=== PATIENT | female | born 1955 | race Caucasian/White ===

== ENCOUNTER → 2017-07-03 10:28 | Outpatient (CLI) | payer MEDICARE, SELFPAY ==
--- NOTE | 2017-07-03 | DI.RAD.S_ITS ---
PROCEDURE: XR FEMUR LT MIN 2V INDICATIONS: LEFT HIP AND THIGH PAIN TECHNIQUE: 3 views of the femur were acquired. COMPARISON: None. FINDINGS: Bones: No fractures or dislocations. No suspicious bony lesions. Advanced degenerative hip joint disease Soft tissues: No suspicious soft tissue calcifications or masses. IMPRESSION: 1. Osteoarthritis left hip. 2. No acute bony abnormality left femur. Dictated by: Semaj Ramirez M.D. on 07/03/2017 at 11:54 Approved by: Semaj Ramirez M.D. on 07/03/2017 at 11:55
--- NOTE | 2017-07-03 | DI.RAD.S_ITS ---
PROCEDURE: XR HIP W PEL IF DONE LT 2V INDICATIONS: LEFT HIP AND THIGH PAIN TECHNIQUE: AP pelvis with lateral view(s) of the left hip(s). COMPARISON: Left hip 03/04/2011, 06/22/2006 FINDINGS: Bones: No fractures or dislocations. Pelvic ring appears intact. No suspicious bony lesions. Degenerative left hip joint disease has progressed in the interim since last study, further narrowing of the joint space, more deformity of the femoral head and more prominent marginal osteophyte formation. Subcortical cystic changes and mild sclerosis again noted. The right hip joint space appears maintained. Sacroiliac joints appear normal. Soft tissues: The visualized bowel gas pattern is normal. No suspicious soft tissue calcifications. IMPRESSION: 1. No fracture or acute bony abnormality. 2. Progressive osteoarthritis left hip, grade 4 in severity with near [id number] appearance Dictated by: Semaj Ramirez M.D. on 07/03/2017 at 11:51 Approved by: Semaj Ramirez M.D. on 07/03/2017 at 11:54
== END ==
PROVIDERS: Family Provider Nurse Practitioner Family; PCP Nurse Practitioner Family; Visit Provider Nurse Practitioner Family
DX: M16.12 Unilateral primary osteoarthritis, left hip (principal)
CPT/HCPCS: 73502; 73552

== ENCOUNTER → 2017-10-02 08:20 | Outpatient (CLI) | payer MEDICARE, SELFPAY ==
[2017-10-02 08:35] LABS: Bacteria Urine None Seen; WBC Urine None Seen (0-5/HPF)
[2017-10-02 09:58] LABS: Appearance Urine UA CLEAR; Bilirubin Urine UA NEGATIVE (NEGATIVE); Color Urine UA YELLOW; Glucose Urine UA NEGATIVE (Normal); Ketones Urine UA NEGATIVE (NEGATIVE); Leukocyte Esterase Urine UA NEGATIVE (NEGATIVE); Nitrite Urine UA Negative (Negative); Occult Blood Urine UA TRACE-INTACT (Negative); Protein Urine UA NEGATIVE (Negative); Urobilinogen Urine UA 0.2 E.U./dL (0.2)
[2017-10-02 10:06] LABS: Add Manual Diff / Slide Review NO; Basophils Percent Auto 0.7 % (0-2); Eosinophils Percent Auto 2.1 % (2-4); Hematocrit 43.2 % (36-46); Hemoglobin 15.2 g/dL (12.0-16.0); Lymphocytes Percent Auto 38.3 % (25-40); Mean Corpuscular HGB Conc 35.1 % (30-36); Mean Corpuscular Hemoglobin 35.1 PG (26-34); Mean Corpuscular Volume 99.8 fL (80-100); Monocytes Percent Auto 3.4 % (3-14); Neutrophils Absolute Auto 3500 /uL (3000-5900); Neutrophils Percent Auto 55.5 % (50-75); Platelet Count 198 X10^3/uL (150-400); Red Blood Cell Count 4.33 X10^6/uL (4.0-5.2); Red Cell Distribution Width 12.8 % (11.6-14.8); White Blood Cell Count 6.4 X10^3/uL (4.5-11.0)
[2017-10-02 10:23] LABS: Hemoglobin A1C% w Est Avg Glu 5.4 % (4.0-6.0)
[2017-10-02 10:29] LABS: BUN Creatinine Ratio 19.1 (6-22); Blood Urea Nitrogen 21 mg/dL (7-17); Calcium 9.4 mg/dL (8.4-10.2); Carbon Dioxide 29 mmol/L (22-32); Chloride 104 mmol/L (98-107); Glucose 95 mg/dL (80-110); HEMOLYSIS < 15 (0-50); Potassium 4.1 mmol/L (3.4-5.1); Sodium 142 mmol/L (137-145)
[2017-10-02 10:44] LABS: Amorphous Sediment Urine 1+; Culture Indicated Urine Cult Not Indicated; RBC Urine 1-5/HPF (0-5/HPF); Squamous Epithelial Cell Urine 5-10 /HPF
== END ==
PROVIDERS: Family Provider Nurse Practitioner Family; PCP Nurse Practitioner Family; Visit Provider Orthopaedic Surgery
DX: Z01.818 Encounter for other preprocedural examination (principal); Z01.812 Encounter for preprocedural laboratory examination; R73.09 Other abnormal glucose; N39.0 Urinary tract infection, site not specified
CPT/HCPCS: 36415; 80048; 81001; 83036; 85025; 93005; 93010

== ENCOUNTER 2017-11-02 06:10 | Inpatient (IN) | payer MEDICARE, SELFPAY ==
[2017-10-17 08:45] VITALS: BMI 22.1
[2017-11-02] VITALS (13 sets, daily range): BP systolic 97–143; BP diastolic 52–80; PULSE 52–67; RESP 12–20; TEMP 35.9–36.8; O2SAT 96–100; BMI 22.1
--- NOTE | 2017-11-02 | DI.RAD.S_ITS ---
PROCEDURE: XR HIP W PEL IF DONE LT 2V INDICATIONS: POST OPERATIVE LEFT HIP TECHNIQUE: 2 view(s) of the hip acquired. COMPARISON: [facility] [place], CR, XR PELVIS 1 OR 2 VIEWS, 10/10/2017, 11:13. [facility], CR, XR HIP W PEL IF DONE LT 2V, 11/02/2017, 8:30. FINDINGS: Bones: Patient is status post left hip arthroplasty, with hardware components in expected positions. The hip joint appears congruent. The visualized bony structures appear intact. Soft tissues: Overlying postoperative changes are noted. No suspicious soft tissue densities. IMPRESSION: Status post left hip arthroplasty as above Dictated by: Marsha Kerr M.D. on 11/02/2017 at 12:34 Approved by: Marsha Kerr M.D. on 11/02/2017 at 12:35
--- NOTE | 2017-11-02 06:30 | DI.RAD.S_ITS ---
PROCEDURE: XR HIP W PEL IF DONE LT 2V INDICATIONS: Intraoperative left hip TECHNIQUE: 2 views of the hip were acquired. COMPARISON: [facility] [place], CR, XR PELVIS 1 OR 2 VIEWS, 10/10/2017, 11:13. [facility], CR, XR HIP W PEL IF DONE LT 2V, 07/03/2017, 10:37. [facility], CR, XR HIP W PEL IF DONE LT 2V, 11/02/2017, 12:02. FINDINGS: 2 intraoperative fluoroscopy images demonstrate left hip total arthroplasty. The prosthesis is anatomically aligned. IMPRESSION: Left hip total arthroplasty. Dictated by: Lisa William M.D. on 11/02/2017 at 14:17 Approved by: Lisa William M.D. on 11/02/2017 at 14:18
[2017-11-02] MEDS: VANCOMYCIN 1,000 MG/200 ML FROZ.PIGGY 200 MG IV (06:55)
[2017-11-02] MEDS: ACETAMINOPHEN 325 MG TABLET 975 MG PO ×3 (07:01→20:05)
[2017-11-02] MEDS: CELECOXIB 200 MG CAPSULE PO (07:02)
[2017-11-02] MEDS: PREGABALIN 75 MG CAPSULE PO (07:03)
--- NOTE | 2017-11-02 07:35 | PM.PREOP ---
Pre-operative Note Interval Note Pre-op Check: Yes History & Physical Reviewed by Physician and Yes Exam Performed Changes: No
--- NOTE | 2017-11-02 07:36 | PM.OP.1 ---
Operative Date/Time/Diagnoses Date of procedure: 11/02/17 Time of procedure: 10:10 Pre-op diagnosis: left hip oa Post-op diagnosis: same Procedure & Clinicians Procedure: Left total hip arthroplasty anterior approach Same procedure as scheduled: Yes Indications: The patient has had progressively worsening left hip pain with radiographic changes consistent with arthritis. Non-operative management has failed and the patient has requested total hip replacement. The risks, benefits and alternatives to surgery were discussed with the patient prior to proceeding. Risks discussed included, but were not limited to, failure to relieve pain, leg length discrepancy, dislocation, stiffness, infection, nerve damage, deep venous thrombosis, pulmonary embolism, stroke, coma, heart attack, permanent paralysis and , as well as the potential need for eventual revision of the prosthetic. Surgeon: Meagan Cleveland Project Management Director: Prakash Smith Anesthesia Type: Spinal Operative Notes Findings: Severe left hip arthritis, good stability Closure Type: primary Specimen(s): none sent Implants & Drains: Left hip R3 52 mm cup with a 36 neutral liner, anthology size 7 standard offset stem, +0 head, single screw 25 mm Applied: drain(s) Estimated Blood Loss (mL): 200 Blood products transfused: none Procedure in detail: The patient was brought to the operating room. Patient was carefully positioned in the supine position. Time-out was performed and antibiotics were given. Anesthesia was induced. She was positioned in the on the table in order to allow hyperextension of the hip. Bilateral lower extremities were prepped and draped in a standard sterile fashion. An anterior left hip incision was made 1 fingerbreadth lateral to the anterior superior iliac spine and extended distally towards the greater trochanter. Dissection was carried out through skin and subcutaneous tissues. The skin and subcutaneous tissues were carefully injected with Marcaine with epi. Superficial hemostasis was achieved. The fascia over the tensor fascia breann was defined and incised with a knife. Two Allis clamps were used to grasp the fascia. Tensor fascia breann was retracted laterally. A gelpi retractor was placed. Dissection was carried out down along the neck. The circumflex vessels were carefully identified and cauterized with the Aqua Mantis. There was good visualization of the femoral neck. A Cobra was placed superior to the neck and the gluteus fibers were carefully stripped from that superior aspect of the capsule. A 2nd retractor was placed along the inferior aspect of the neck. The rectus insertion along the capsule was released. A 3rd retractor that was then gently placed over the rim of the acetabulum under the rectus. Capsule was carefully incised and released from the intertrochanteric line circumferentially superior to the mid sagittal line and inferiorly to the mid sagittal line until the lesser trochanter was palpable. A tag stitch was placed both in the superior and inferior limb of the capsular insertion. Along the acetabulum capsule was also released up to the mid sagittal 12:00 position. Portion of the labrum was resected. A saw was used to perform an osteotomy at the level of the intertrochanteric line and the junction of the superior femoral neck leaving approximately 1 finger breath of residual inferior neck above the lesser trochanter. A 2nd cut was made along the femoral neck at the base of the head and a napkin ring of neck was removed. Corkscrew was placed in the femoral head and the head was removed without difficulty. Retractors were then repositioned around the acetabulum. Residual labrum was resected and additional osteophytes were removed. A Reamer that was 4 mm below the templated size was placed by hand in the acetabulum and it was reamed to centralize the acetabulum. Was then reamed up to 2 under the templated size fluoroscopy was brought in to confirm the position of the reaming and depth of reaming. I reamed 1 under the anticipated size and touch the rim with line to line reaming. A trial cup was placed and noted that it was appropriately sized and fluoroscopy confirmed position and depth. The component was open and inserted without difficulty fluoroscopic imaging was used to confirm that the cup had been adequately seated and was well positioned. The cup was carefully seated and had some stability and it was also fixed with a single acetabular screw that had good bite and purchase. Neutral poly liner was placed. The cup was tested and noted to be stable. Attention was then directed to the femur. The femur was gently hyperextended additional capsular release was performed as needed in order to allow adequate visualization of the proximal femur with elevation of the femur. Patient was placed in a hyperextended slightly abducted position with maximum external rotation. Box osteotome was used to check for any residual neck as well as sclerotic bone along the trochanter. [place] pepper was placed in the femur. Additional broaching was performed. Canal finer was used to determine the alignment of the canal and position. Size 1 broach was placed. The canal was then appropriately broached up to the templated size as long as there was adequate stability of the broach and serial advancement of the broach without excessive impingement. Specific attention was directed at avoiding varus attempting to direct the distal aspect of the approach more anteriorly and avoiding excessive anteversion. Trial reduction showed acceptable range of motion, good stability, no posterior impingement, buddhism of leg length and appropriate lateral shuck. I also hyperflexed the hip and checked that there was no impingement anteriorly and there was good stability with flexion, abduction and internal rotation. Final neutral poly was placed without difficulty. Marcaine and Exparel were injected.. The stem was placed without difficulty. Repeat trial reduction and x-ray showed acceptable overall position, length, and no evidence of the femoral fracture. Final head was placed. Wound was meticulously irrigated with normal saline. The hip was reduced and additional Exparel and Marcaine were injected. The capsule was closed with interrupted black braided nylon. The fascia of the tensor was closed with interrupted and running Vicryl. No drain was placed. Any tensor fascia breann muscle that appeared to be contused or injured which was a minimal amount was carefully resected. Capsule around the tensor was injected with Exparel and Marcaine. The skin was closed with barbed stitches for the subcutaneous tissue and skin. We also used surgical glue. The wound was dressed sterilely. Brief Betadine soak was also used and was meticulously irrigated with normal saline. Patient was transferred to recovery room in satisfactory condition. Complications: none Condition: stable Disposition: Acute Care Plan for aftercare: The patient will be maintained on a standard total hip replacement protocol with weight bearing as tolerated and anterior hip precautions. The patient will receive aspirin and sequential compression devices for DVT prophylaxis. The patient will be discharged home when safe for the home environment.
[2017-11-02] MEDS: ALBUTEROL/IPRATROPIUM 3 ML AMPUL INH (07:45)
[2017-11-02] MEDS: CEFAZOLIN 2 GM/100 ML FROZ.PIGGY IV ×3 (08:00→23:57)
[2017-11-02] MEDS: TRANEXAMIC ACID 1,000 MG VIAL 1000 MG INJ (08:35)
--- NOTE | 2017-11-02 08:52 | SUR.OPER ---
Supine, head on pillow, torso on pink pad positioner. Iliac crest at flex of foot end of table. Gel roll under operative hip. Both arms secured on arm boards <90 degrees abduction.
--- NOTE | 2017-11-02 08:53 | SUR.OPER ---
PATIENT REQUIRED A NEBULIZER TREATMENT PRE OP FOR DIFFUSE WHEEZING.. EX SMOKER
[2017-11-02] MEDS: BUPIVACAINE 0.25% W/ EPI VIAL 60 ML INJ (09:04)
[2017-11-02] MEDS: BUPIVACAINE LIPOSOME 266 MG/20 ML VIAL INJ (09:05)
[2017-11-02] MEDS: LIDOCAINE 1% W/EPI INJ 11 ML INJ (09:12)
[2017-11-02] MEDS: LACTATED RINGERS 1,000 ML 42 ML IV (09:13)
[2017-11-02] MEDS: POVIDONE-IODINE 15 ML, SODIUM CHLORIDE 0.9% 250 ML TOP (09:41)
--- NOTE | 2017-11-02 12:16 | CM.IDA ---
Addendum entered by CHRIS Elise 11/03/17 14:57: Met w/pt this morning, she explained she would be going home today and was eager to leave the hospital and get back to the comfort of her own home. She felt there were no barriers to safe DC home; spouse, children and grand children available to assist and all DME needed at home w/scheduled outpt appts. MALIA Original Note: DCP Assessment Note: Pt is a 62 yo female, resident of [place]. Pt here for hip surgery w/Dr Cleveland. Pt's PCP is Nelly Jones; Insurance is Medicare. Pt off the floor for surgery this morning. Will attempt full assessment Monday. CHRIS Elise Discharge Planning/Care Management CM Discharge Assessment Start: 11/02/17 12:06 Freq: Status: Active Protocol: Document 11/02/17 12:06 MALIA (Rec: 11/02/17 12:16 MALIA [id number]) Discharge Planning Assessment Assigned Consulting Practice Director CHRIS Tamayo DPOA/Assigned Designee Name Tima Brink, spouse Contact Information home, cell, Advance Directives? No: Declines further information Advance Directives on File No History Provided By Patient Significant Other Medical Record Prior Living Arrangements House Household Members spouse Type of transporation used prior to Drives own vehicle admit Independent with ADL's Yes Is patient alert and oriented? Yes Barriers to Discharge No Comment Likely home w/spouse, pt off the floor for surgery this morning Discharge Plan Home Transportation Arrangement Family Additional Comment Pt expects to DC home w/spouse to assist. Whiteboard Updated in Patient Room with Yes name and ext. # of Consulting Practice Director Review Status In Process
--- NOTE | 2017-11-02 12:27 | SUR.PHASEI ---
Ronel removed now by Octavia Stokes RN.
--- NOTE | 2017-11-02 12:51 | PC.NURSE ---
Pt to room 205 via bed from PACU. Pt awake and oriented times three. Pt denies nausea, pain, or shortness of breath. Pt oriented to call light, bed controls, tv controls. Pt bed alarm is on. Pt agrees to call for assistance as needed. Ice to left hip. CMS intact. SCD's on and running.
[2017-11-02] MEDS: LACTATED RINGERS 1,000 ML 125 ML IV (13:19)
--- NOTE | 2017-11-02 15:38 | PT.IIE ---
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) Surgery Performed Operation Date: 11/02/17 07:45 Actual Procedures p Total Hip Arthroplasty/Anterior Approach(Left) - Meagan Cleveland MD Surgical History (Last Updated 10/17/17 @ 09:19 by Elaine Nova, RN) History of skin graft (Acute) Hx of dilation and curettage (Acute) Hx of tonsillectomy (Acute) Medical History (Last Updated 10/17/17 @ 09:19 by Elaine Nova RN) Bronchitis (Acute) Depression (Acute) Elevated cholesterol (Acute) Endometriosis (Acute) Pneumonia (Acute) RLS (restless legs syndrome) (Acute) Physical Therapy Inpatient Evaluation/Re-Eval M1 PT/OT-IP Prior Functional Status Start: 11/02/17 16:40 Freq: NEEDED Status: Active Protocol: Document 11/02/17 15:38 AB (Rec: 11/02/17 16:54 AB [id number]) Medical Review Prior Functional Status Medical History Reviewed Yes Communication able to make needs known Mobility and Gait pt stated that she is independent with all mobilities and ambulation without AD Social History Household Members spouse Living Arrangements House Number of Floors (Floors) One Floor Number of Stairs To Enter/Railing? 5 steps to enter with bilateral rails Home Environment High Toilet Walk in Shower Home Equipment Front Wheel Walker Straight Cane Employment Status Retired Additional Social History Comment stated that they borrowed a shower chair from the soroptomist but will just get it tomorrow M2 PT-IP Current Condition Start: 11/02/17 16:40 Freq: NEEDED Status: Active Protocol: Document 11/02/17 15:38 AB (Rec: 11/02/17 16:54 AB [id number]) Physical Therapy Current Condition Current Condition Evaluation Date 11/02/17 Treatment Diagnosis s/p L SAMANTHA anterior approach; difficulty in walking Onset Date 11/02/17 Precautions Anterior Hip Precautions No Hip Extension No Hip External Rotation Weight Bearing Status Weight Bearing Status Weight Bear as Tolerated M3 PT-IP Subjective Start: 11/02/17 16:40 Freq: NEEDED Status: Active Protocol: Document 11/02/17 15:38 AB (Rec: 11/02/17 16:54 AB [id number]) Subjective Physical Therapy Visit Type Type Initial Evaluation Visit Start Time 15:38 Visit Stop Time 16:38 Total Visit Minutes 60 Number of COMMERCIAL TRAILER TRUCK DRIVER Visits 0 Physical Therapy Visit Comments Patient Comments pt requesting to use the toilet Therapy Pain Assessment Pain When Pain Assessed At Rest Pain Present Pain Present Pain Reported Location Left Hip Intensity 3 Scale Used Numeric (1 - 10) Pain Management Techniques Timing of Activity with Medications M4 PT-IP Mobility and Gait Start: 11/02/17 16:40 Freq: NEEDED Status: Active Protocol: Document 11/02/17 15:38 AB (Rec: 11/02/17 16:54 AB [id number]) PT-Bed Mobility Assessment Supine to Sit Supine to Sit Standby Assistance Scooting Scooting to Edge of Bed Standby Assistance PT-Transfer Assessment Sit to and From Stand Sit to and from Stand Standby Assistance Equipment Transfer Assistive Device Gait Belt Front Wheeled Walker Orthotic/Prosthetic Devices or Brace: No Transfers Transfer Destination Toilet Transfer Technique pt ambulated to the toilet Transfer Ability Level of Assist Standby Assistance Contact Guard Assistance Gait Assessment Gait Gait Assistance Required: Standby Assistance Contact Guard Assist Distance (Feet) 40 Able to Maintain Weight Bearing Status Yes During Gait Assistive Devices Assistive Device Gait Belt Front Wheeled Walker Orthotic/Prosthetic Devices or Brace: No Gait Deviations General Gait Pattern Antalgic Factors Limiting Gait Function Factors Limiting Gait Function Decreased Activity Tolerance Decreased Strength Limited Range of Motion Pain Poor Balance Comments Gait Comments pt requiring SBA to CGA with mobility. refused to do stairs today but agreed to try tomorrow. PT-Balance Assessment Sitting Balance and Reactions Static Sitting Balance Ability Good Dynamic Sitting Balance Ability Good Standing Balance and Reactions Static Standing Balance Ability Fair Dynamic Standing Balance Ability Fair Device Used FWW M5 PT-IP Objective Assessments Start: 11/02/17 16:40 Freq: NEEDED Status: Active Protocol: Document 11/02/17 15:38 AB (Rec: 11/02/17 16:54 AB [id number]) Orientation Orientation/Cognition Level of Alertness Alert Orientation Name Age Birthday Month Date Year Day of Week Place Situation Safety Awareness Understands Safety Issues Strength Lower Extremity Strength Assessment Left Impaired Hip 3-/5 Knee 3+/5 Coordination Assessment Gross Coordination Gross Coordination WNL Sensation Assessment Sensation Gross Sensation WNL Muscle Tone Muscle Tone WNL Yes M6 PT-IP Treatment Start: 11/02/17 16:40 Freq: NEEDED Status: Active Protocol: Document 11/02/17 15:38 AB (Rec: 11/02/17 16:54 AB [id number]) Physical Therapy Treatment Education Education Provided Precautions Weight Bearing Status Post-Op Packet Safety M7 PT-IP Assessment and Plan Start: 11/02/17 16:40 Freq: NEEDED Status: Active Protocol: Document 11/02/17 15:38 AB (Rec: 11/02/17 16:54 AB [id number]) PT Summary Assessment and Plan Potential Rehabilitation Potential Good Status of Condition at Evaluation Stable Summary Impairments Pain ROM Strength Balance Coordination Sensation Tone Cognition Bed Mobility Transfers Gait Activity Tolerance Assessment Summary pt is doing well with mobility requiring SBA to CGA. Pt plans to go home with spouse to assist her. pt also stated that she is set up for outpt PT. Goals Bed Mobility Goal Independent Transfer Goal Independent Front Wheeled Walker Gait Goal Independent Front Wheel Walker Gait Distance 150 Other Goals up/down 5 steps with bilateral rails SBA Days to Meet Goals 2 Frequency of Treatment Frequency Of Treatment Twice a Day Treatment Plan Physical Therapy Treatment Plan Bed Mobility Training Transfer Training Gait Training Therapeutic Exercise Balance Retraining Post Op Education Discharge Planning Hot or Cold Pack Neuromuscular Re-ed Coordination Retraining Manual Therapy Other Recommendations and Next Treatment stair climbing Focus Recommendations To Nursing Amount of Assist Needed 1 Person Assist Discharge Recommendations PT Discharge Recommendations Home with Assistance Outpatient PT
[2017-11-02] MEDS: OXYCODONE IR 5 MG TABLET PO (19:31)
[2017-11-03 00:07] VITALS: BP 99/43; PULSE 66; RESP 16; TEMP 36.6; O2SAT 98
[2017-11-03] MEDS: IBUPROFEN 600 MG TABLET PO (02:48)
[2017-11-03 04:42] VITALS: BP 110/63; PULSE 65; RESP 18; TEMP 36.9; O2SAT 97
[2017-11-03] MEDS: LACTATED RINGERS 1,000 ML 125 ML IV (06:30)
[2017-11-03 06:46] LABS: Hematocrit 28.9 % (36-46); Hemoglobin 10.4 g/dL (12.0-16.0)
[2017-11-03] MEDS: OXYCODONE IR 5 MG TABLET PO ×2 (07:02→10:11)
[2017-11-03 07:20] VITALS: BP 109/59; PULSE 68; RESP 16; TEMP 36.7; O2SAT 98
--- NOTE | 2017-11-03 07:38 | PM.DS.1 ---
History of Present Illness Date Patient Seen: 11/03/17 Chief complaint: [id number] Narrative: Patient is seen bedside status post left anterior hip arthroplasty postop day 1. Patient is doing well, her pain is well controlled and she has been up and about walking to the bathroom. She is ready to go home. Discharge Providers Date of admission: 11/02/17 06:10 Primary care physician: MANDIE Sherman Consults: 11/02/17 12:50 Consult to Discharge Planning Routine Comment: Consult to Physical Therapy Evaluate & Treat Comment: Physician Instructions: post op SAMANTHA protocol Consult to Respiratory Therapy Evaluate & Treat Comment: Physician Instructions: Evaluate and treat Discharge provider: Brigida Llamas PA-C Summary Discharge Diagnosis: Left hip osteoarthritis Hospital Course: Patient was admitted to the hospital status post left anterior hip arthroplasty on 11/02/2017. Patient tolerated procedure well no major complications patient was transferred to the acute care floor where she was seen by Physical therapy recommendation was discharged home. Patient was stable and ready for discharge on 11/03/2017 Status at Discharge Cognitive/behavioral status at discharge: Alert and oriented x3 Functional status at discharge: uses cane/walker Overall status at discharge: patient is progressing back to baseline Time Spent with Patient Less than 30 minutes Exam Vital Signs (past 8 hours): - 11/03/17 00:07 11/03/17 04:42 Temperature 97.9 F 98.5 F Pulse Rate 66 65 Respiratory Rate 16 18 Blood Pressure 99/43 L 110/63 Pulse Oximetry 98 97 Oxygen Delivery Method Room Air Narrative Exam Narrative: Patient is well-developed well-nourished in no acute distress. Patient was alert and oriented x3. On examination, anterior hip dressing is clean dry and intact with no drainage noted. There is some mild ecchymosis around the dressing site. She has full range of motion of the knee and ankle and is neurovascularly intact in this extremity. Her calves are soft and compressible. Objective Labs Result Diagrams: 11/03/17 06:15 Labs: Laboratory Results - last 24 hr 11/03/17 06:15 Hgb 10.4 L Hct 28.9 L Discharge Plan Discharge Plan Patient Disposition: Home Discharge Med Rec/Prescriptions Prescriptions: New aspirin 81 mg Tablet,Delayed Release (Dr/Ec) 81 mg PO BID Qty: 0 RF: 0 docusate sodium 100 mg Capsule 100 mg PO BID Qty: 0 RF: 0 oxycodone 5 mg Tablet 5 mg PO Q4H PRN (Reason: Pain, Moderate (4-6)) Qty: 0 RF: 0 Continue cyanocobalamin (vitamin B-12) 1,000 MCG tablet extended release 1,000 mcg PO DAILY Qty: 0 RF: 0 ibuprofen 200 mg Capsule 3 tab PO TID PRN (Reason: pain) RF: 0 acetaminophen [Tylenol Extra Strength] 500 mg Tablet 1,000 mg PO Q6H PRN (Reason: pain) RF: 0 Follow up/Referrals: Nelly Villalobos ARNP [Primary Care Provider] - Provider Discharge Instructions Diet: Diet as Tolerated Activity: Weightbearing as tolerated, use walker to ambulate, follow anterior hip precautions Cold/Heat Therapy: Apply ice 20 minutes at a time at least hourly while awake Skin/Wound/Dressing Care Report to your healthcare provider any signs of infection, such as:: chills, fever, night sweats, increased pain and unusual drainage Dressing: Keep Aquacel dressing on and clean, dry, and intact. May shower with dressing on. No bathing or soaking. Visit Report/Discharge Packet Instructions: DI for Hip Replacement Visit Report Forms: Stroke Signs & Symptoms Discharge Data Primary Care Provider: Nelly Villalobos Attending Provider: Meagan Cleveland Admit Date/Time: 11/02/17 06:10 Discharges patient from system. Discharge Date/Time: 11/03/17 10:16 Quality VTE Deep Vein Thrombosis/Pulmonary Embolism Present on Admission: No
[2017-11-03] MEDS: ACETAMINOPHEN 325 MG TABLET 975 MG PO (08:05)
--- NOTE | 2017-11-03 09:24 | PT.IPTN ---
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) Surgery Performed Operation Date: 11/02/17 07:45 Actual Procedures p Total Hip Arthroplasty/Anterior Approach(Left) - Meagan Cleveland MD Physical Therapy Treatment Note M2 PT-IP Current Condition Start: 11/02/17 16:40 Freq: NEEDED Status: Discharge Protocol: Document 11/02/17 15:38 AB (Rec: 11/02/17 16:54 AB [id number]) Physical Therapy Current Condition Current Condition Evaluation Date 11/02/17 Treatment Diagnosis s/p L SAMANTHA anterior approach; difficulty in walking Onset Date 11/02/17 Precautions Anterior Hip Precautions No Hip Extension No Hip External Rotation Weight Bearing Status Weight Bearing Status Weight Bear as Tolerated M3 PT-IP Subjective Start: 11/02/17 16:40 Freq: NEEDED Status: Discharge Protocol: Document 11/03/17 09:24 AB (Rec: 11/03/17 13:53 AB [id number]) Subjective Physical Therapy Visit Type Type Treatment Note Visit Start Time 09:24 Visit Stop Time 09:42 Total Visit Minutes 18 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 Physical Therapy Visit Comments Patient Comments pt agreeable to do PT Therapy Pain Assessment Pain When Pain Assessed At Rest Pain Present Pain Present Pain Reported Location Left Hip Intensity 4 Scale Used Numeric (1 - 10) Pain Management Techniques Apply Cold Timing of Activity with Medications M4 PT-IP Mobility and Gait Start: 11/02/17 16:40 Freq: NEEDED Status: Discharge Protocol: Document 11/03/17 09:24 AB (Rec: 11/03/17 13:53 AB [id number]) PT-Bed Mobility Assessment Supine to Sit Supine to Sit Standby Assistance Sit to Supine Sit to Supine Standby Assistance PT-Transfer Assessment Equipment Transfer Assistive Device Bed Rail Front Wheeled Walker Orthotic/Prosthetic Devices or Brace: No Transfers Transfer Destination Toilet Transfer Technique pt ambulated to the toilet Transfer Ability Level of Assist Standby Assistance Gait Assessment Gait Gait Assistance Required: Standby Assistance Distance (Feet) 60 Able to Maintain Weight Bearing Status Yes During Gait Assistive Devices Assistive Device Gait Belt Front Wheeled Walker Orthotic/Prosthetic Devices or Brace: No Gait Deviations General Gait Pattern Antalgic Factors Limiting Gait Function Factors Limiting Gait Function Decreased Activity Tolerance Decreased Strength Pain Poor Balance Stair Climbing Assessment Evaluation Level of Assist On Stairs Standby Assistance Devices Stair Climbing Assistive Devices Left Railing Right Railing Technique/Endurance Stair Climbing Direction Ascend and Descend Stair Climbing Technique Step to Step Number of Steps Climbed 3 Query Text: M5 PT-IP Objective Assessments Start: 11/02/17 16:40 Freq: NEEDED Status: Discharge Protocol: Document 11/02/17 15:38 AB (Rec: 11/02/17 16:54 AB [id number]) Orientation Orientation/Cognition Level of Alertness Alert Orientation Name Age Birthday Month Date Year Day of Week Place Situation Safety Awareness Understands Safety Issues Strength Lower Extremity Strength Assessment Left Impaired Hip 3-/5 Knee 3+/5 Coordination Assessment Gross Coordination Gross Coordination WNL Sensation Assessment Sensation Gross Sensation WNL Muscle Tone Muscle Tone WNL Yes M6 PT-IP Treatment Start: 11/02/17 16:40 Freq: NEEDED Status: Discharge Protocol: Document 11/03/17 09:24 AB (Rec: 11/03/17 13:53 AB [id number]) Physical Therapy Treatment Education Education Provided Precautions Safety M7 PT-IP Assessment and Plan Start: 11/02/17 16:40 Freq: NEEDED Status: Discharge Protocol: Document 11/03/17 09:24 AB (Rec: 11/03/17 13:53 AB [id number]) PT Summary Assessment and Plan Potential Rehabilitation Potential Good Summary Impairments Pain ROM Strength Balance Bed Mobility Transfers Gait Activity Tolerance Progress Towards Goals Progressing Toward Goals Assessment Summary pt doing well with mobility and plans to go home today with spouse to assist her. Goals Bed Mobility Goal Independent Transfer Goal Independent Front Wheeled Walker Gait Goal Independent Front Wheel Walker Gait Distance 150 Other Goals up/down 5 steps with bilateral rails SBA Days to Meet Goals 2 Frequency of Treatment Frequency Of Treatment Twice a Day Treatment Plan Physical Therapy Treatment Plan Bed Mobility Training Transfer Training Gait Training Therapeutic Exercise Balance Retraining Post Op Education Discharge Planning Hot or Cold Pack Neuromuscular Re-ed Coordination Retraining Manual Therapy Other Recommendations and Next Treatment stair climbing Focus Recommendations To Nursing Amount of Assist Needed 1 Person Assist Discharge Recommendations PT Discharge Recommendations Home with Assistance Outpatient PT
--- NOTE | 2017-11-03 10:14 | PC.NURSE ---
Pt up with PT. Discharged home. IV removed and pt given all paperwork. Given percolone just prior to leaving. Aquacel dressing CDI. Taken by wheelchair to waiting vehicle.
== END 2017-11-03 10:16 | disposition home or self-care (01) | DRG 470 ==
PROVIDERS: Admitting Provider Orthopaedic Surgery; Family Provider Nurse Practitioner Family; PCP Nurse Practitioner Family; Visit Provider Orthopaedic Surgery
PROC: 0SRB02Z Replacement of Left Hip Joint with Metal on Polyethylene Synthetic Substitute, Open Approach (ICD-10-PCS; CPT 27130; principal; 2017-11-02 07:45)
DX: M16.12 Unilateral primary osteoarthritis, left hip (principal); Q65.89 Other specified congenital deformities of hip; Z87.891 Personal history of nicotine dependence
CPT/HCPCS: 36415; 73502; 85014; 85018; 97116; 97161; 97530; C1776; C9290; J0690; J2250; J2704; J3010; J3370

== ENCOUNTER 2019-04-10 17:00 | Emergency (ER) | payer MEDICARE, SELFPAY ==
[2017-12-02 15:06] VITALS: BMI 22.1
[2019-04-10 17:08] VITALS: BP 156/72; PULSE 73; RESP 18; TEMP 36.8
[2019-04-10 17:50] LABS: Add Manual Diff / Slide Review NO; Basophils Absolute Auto 100 /uL (0-100); Basophils Percent Auto 0.6 % (0-2); Eosinophils Absolute Auto 100 /uL (0-450); Eosinophils Percent Auto 0.9 % (2-4); Hematocrit 39.4 % (36-46); Hemoglobin 13.9 g/dL (12.0-16.0); Lymphocytes Absolute Auto 1700 /uL (1100-4500); Lymphocytes Percent Auto 19.2 % (25-40); Mean Corpuscular HGB Conc 35.2 % (30-36); Mean Corpuscular Volume 99.4 fL (80-100); Monocytes Absolute Auto 700 /uL (0-900); Monocytes Percent Auto 7.8 % (3-14); Neutrophils Absolute Auto 6200 /uL (1500-7000); Neutrophils Percent Auto 71.5 % (50-75); Platelet Count 228 X10^3/uL (150-400); Red Blood Cell Count 3.97 X10^6/uL (4.0-5.2); Red Cell Distribution Width 12.8 % (11.6-14.8); White Blood Cell Count 8.6 X10^3/uL (4.5-11.0)
[2019-04-10 17:56] LABS: BUN Creatinine Ratio 22.5 (6-22); Blood Urea Nitrogen 18 mg/dL (7-17); Calcium 9.7 mg/dL (8.4-10.2); Carbon Dioxide 30 mmol/L (22-32); Chloride 102 mmol/L (98-107); Creatine Kinase 102 U/L (30-135); Estimated Glomerular Filt Rate > 60.0 mL/min (>60); Glucose 101 mg/dL (80-110); HEMOLYSIS 38 (0-50); Potassium 3.8 mmol/L (3.4-5.1); Sodium 140 mmol/L (137-145)
[2019-04-10 18:08] LABS: NT-proBNP (BNP-Adult 18+) 128 pg/mL (<125); Troponin I < 0.012 ng/mL (0.01-0.034)
--- NOTE | 2019-04-10 18:08 | ED.GENADULT ---
HPI - General Adult General Chief complaint: Upper Respiratory Symptoms Stated complaint: CANT BREATH Time Seen by Provider: 04/10/19 17:39 Source: patient Mode of arrival: Wheelchair Limitations: no limitations History of Present Illness HPI narrative: 63-year-old female. No prior history of cardiovascular disease or lung history. Here for evaluation of 4 days of a cough. No headache. Somewhat of a productive cough. She states is very difficult for her to bring anything up. No chest pain. Has not tried anything for symptoms prior to arrival. Related Data Home Medications Medication Instructions Recorded Confirmed cyanocobalamin (vitamin B-12) 1,000 mcg PO DAILY #0 03/14/16 12/02/17 acetaminophen [Tylenol Extra 1,000 mg PO Q6H PRN 10/17/17 12/02/17 Strength] ibuprofen 3 tab PO TID PRN 10/17/17 12/02/17 Previous Rx's Medication Instructions Recorded aspirin 81 mg PO BID #0 tab 11/03/17 polymyxin B sulfate 10,000 2 drp OPHTHALMIC (EYE) QID #10 ml 12/02/17 unit-trimethoprim 1 mg/mL eye drops albuterol sulfate 2 puff INHALATION Q4-6H PRN #18 04/10/19 gram benzonatate [Tessalon Perles] 100 mg PO BID-TID PRN #20 cap 04/10/19 Allergies Allergy/AdvReac Type Severity Reaction Status Date / Time bupropion [From WELLBUTRIN] Allergy Severe rash, Verified 12/02/17 15:48 rapid heart rate niacin [NIACIN] Allergy Severe Itching Verified 12/02/17 15:48 nicotine [NICOTINE] Allergy Severe Patch-rash Verified 12/02/17 15:48 Review of Systems Constitutional Constitutional: Denies fatigue and Denies fever(s) ENT Ears, Nose, Mouth, and Throat: Denies sinus pressure and Reports sore throat Cardiovascular Cardiovascular: Denies chest pain and Reports dyspnea Respiratory Respiratory: Reports chest congestion, Reports cough and Reports dyspnea Gastrointestinal Gastrointestinal: Denies abdominal pain, Denies nausea and Denies vomiting Musculoskeletal Musculoskeletal: Denies myalgias and Denies arthralgias Integumentary/Breasts Skin/Breast: Denies lesions and Denies rash Neurologic Neurologic: Denies behavioral changes Psychiatric Psychiatric: Denies behavioral changes Endocrine Endocrine: Denies fatigue Hematologic/Lymphatic Hematologic/Lymphatic: Denies easy bleeding and Denies easy bruising Allergic/Immunologic Allergic/Immunologic: Denies urticaria Patient History Medical History Bronchitis (Acute) Depression (Acute) Elevated cholesterol (Acute) Endometriosis (Acute) Pneumonia (Acute) RLS (restless legs syndrome) (Acute) Surgical History (Updated 10/17/17 @ 09:19 by Elaine Nova RN) History of skin graft (Acute) Hx of dilation and curettage (Acute) Hx of tonsillectomy (Acute) Social History household members: spouse Smoking Status: Current some day smoker alcohol intake: current Smoking Status: Current some day smoker alcohol intake frequency: a few times a week Substance Use Type: marijuana Exam Initial Vital Signs Initial Vital Signs: Vital Signs Temperature 98.3 F 04/10/19 17:08 Pulse Rate 73 04/10/19 17:08 Respiratory Rate 18 04/10/19 17:08 Blood Pressure 156/72 H 04/10/19 17:08 Const General: cooperative, comfortable and well developed Limitations: mental status not altered HENMT Head: normal to inspection and normocephalic Ears: TM normal on the right and TM abnormal bulging Resp Effort & Inspection: normal respiratory effort Auscultation: clear to auscultation bilaterally Cardio Rate: regular rate Rhythm: regular rhythm GI Palpation: soft Skin Lesions: no lesions Rashes: no rashes Neuro General: alert and awake Cognition: normal cognition Speech: speech normal Extrem General: normal to inspection, capillary refill normal and No edema Psych Appearance: grossly normal and well kempt Scores GCS Marilee coma scale eye opening: Spontaneous Mar[place] coma scale verbal response: Orientated Mar[place] coma scale motor response: Obey commands [place] coma scale total score: 15 Course Orders Ordered: ED Orders 04/10/19 17:23 Basic Metabolic Panel Stat Complete Blood Count AUTO DIFF Stat NT-proBNP (BNP-Adult 18+) Stat Troponin & CK Cardiac Panel Stat 04/10/19 17:45 Influenza A & B (PCR) Stat 04/10/19 18:16 XR chest 1V Stat Vital Signs Vital signs: Vital Signs - 8 hr 04/10/19 17:08 04/10/19 18:50 Temperature 98.3 F Pulse Rate 72 Pulse Rate [Left] 73 Respiratory Rate 18 19 Blood Pressure [Left Arm] 156/72 H 145/76 H Pulse Oximetry 95 Medical Decision Making Lab Data Lab results reviewed: Yes I reviewed the patient's lab results. Result diagrams: 04/10/19 17:23 04/10/19 17:23 Labs: Lab Results 04/10/19 04/10/19 04/10/19 Range/Units 17:23 17:23 17:23 WBC 8.6 (4.5-11.0) X10^3/uL RBC 3.97 L (4.0-5.2) X10^6/uL Hgb 13.9 (12.0-16.0) g/dL Hct 39.4 (36-46) % MCV 99.4 (80-100) fL MCH 35.0 H (26-34) PG MCHC 35.2 (30-36) % RDW 12.8 (11.6-14.8) % Plt Count 228 (150-400) X10^3/uL Neut % (Auto) 71.5 (50-75) % Lymph % (Auto) 19.2 L (25-40) % [place] % (Auto) 7.8 (3-14) % Eos % (Auto) 0.9 L (2-4) % Baso % (Auto) 0.6 (0-2) % Neut # (Auto) 6200 (6207-3883) /uL Lymph # (Auto) 1700 (8603-9009) /uL [place] # (Auto) 700 (0-900) /uL Eos # (Auto) 100 (0-450) /uL Baso # (Auto) 100 (0-100) /uL Sodium 140 (137-145) mmol/L Potassium 3.8 (3.4-5.1) mmol/L Chloride 102 (98-107) mmol/L Carbon Dioxide 30 (22-32) mmol/L BUN 18 H (7-17) mg/dL Creatinine 0.80 (0.52-1.04) mg/dL Estimated GFR > 60.0 (>60) mL/min BUN/Creatinine Ratio 22.5 H (6-22) Glucose 101 (80-110) mg/dL Calcium 9.7 (8.4-10.2) mg/dL Total Creatine Kinase 102 (30-135) U/L CK-MB (CK-2) 0.83 (<2.37) ng/mL CK-MB (CK-2) Rel Index 0.8 L (1.5-5.0) % Troponin I < 0.012 (0.01-0.034) ng/mL NT-Pro-B Natriuret Pep 128 H (<125) pg/mL Influenza A (RT-PCR) (NEGATIVE) Influenza B (RT-PCR) (NEGATIVE) 04/10/19 Range/Units 17:45 WBC (4.5-11.0) X10^3/uL RBC (4.0-5.2) X10^6/uL Hgb (12.0-16.0) g/dL Hct (36-46) % MCV (80-100) fL MCH (26-34) PG MCHC (30-36) % RDW (11.6-14.8) % Plt Count (150-400) X10^3/uL Neut % (Auto) (50-75) % Lymph % (Auto) (25-40) % [place] % (Auto) (3-14) % Eos % (Auto) (2-4) % Baso % (Auto) (0-2) % Neut # (Auto) (0865-2110) /uL Lymph # (Auto) (9461-2997) /uL [place] # (Auto) (0-900) /uL Eos # (Auto) (0-450) /uL Baso # (Auto) (0-100) /uL Sodium (137-145) mmol/L Potassium (3.4-5.1) mmol/L Chloride (98-107) mmol/L Carbon Dioxide (22-32) mmol/L BUN (7-17) mg/dL Creatinine (0.52-1.04) mg/dL Estimated GFR (>60) mL/min BUN/Creatinine Ratio (6-22) Glucose (80-110) mg/dL Calcium (8.4-10.2) mg/dL Total Creatine Kinase (30-135) U/L CK-MB (CK-2) (<2.37) ng/mL CK-MB (CK-2) Rel Index (1.5-5.0) % Troponin I (0.01-0.034) ng/mL NT-Pro-B Natriuret Pep (<125) pg/mL Influenza A (RT-PCR) Flu a negative (NEGATIVE) Influenza B (RT-PCR) Flu b negative (NEGATIVE) Imaging Data Chest x-ray: Radiologist's Impression: [address] [address] XRay Report Signed Patient: Jeanine Brink MMR#: [id number] : 4Acct:[id number] Age/Sex: 63 / FDate of Service: 04/10/19 Loc: ED Accession Number: [id number] Procedure: XR chest 1V Ordering Provider: Jordi Krueger D.O. PROCEDURE: XR CHEST 1V INDICATIONS: sob TECHNIQUE: One view of the chest was acquired. COMPARISON: [facility], , CHEST 2 VIEW, 05/11/2007, 12:30. FINDINGS: Surgical changes and devices: None. Lungs and pleura: Diffuse interstitial changes suggest interstitial pulmonary edema. No pleural effusions or pneumothorax. Mediastinum: Mediastinal contours appear normal. Heart size is normal. Bones and chest wall: No suspicious bony lesions. Overlying soft tissues appear unremarkable. IMPRESSION: Probable interstitial pulmonary edema. Dictated by: Tim Bhat M.D. on 04/10/2019 at 18:39 Approved by: Tim Bhat M.D. on 04/10/2019 at 18:40 ECG Data Attestation: I personally reviewed and interpreted this ECG as follows: Prior ECG tracings: not available for review Interpretation: Sinus rhythm Ventricular rate is 68 Normal axis Normal QRS Normal QTC No ST T wave changes MDM Narrative Medical decision making narrative: Patient without respiratory distress. Not hypoxic. Clear lungs. Chest x-ray does show pulmonary edema however her physical exam and her BNP does not support this. No edema. She has had symptoms for 4 days. Minimal if any [id number] treatment prior to this. We will treat her symptoms. She was instructed to contact her primary doctor for further workup of her symptoms do not improve. She expressed understanding and agreement with plan. Discharge Plan Departure Patient Disposition: Home Clinical Impression: Cough Instructions: Cough (Alternative Therapy), Cough Activity Restrictions/Additional Instructions: Recommend that you take the medications like we discussed. Also recommend that you try the some of the [id number]-vupnici cough and cold preparations however be sure to look at the label like we discussed. I also recommend that you contact your primary provider for a follow-up to discuss the chest x-ray findings today. Return to the emergency department for any new or worsening symptoms. Your prescriptions were electronically transmitted to [facility] Prescriptions: New benzonatate [Tessalon Perles] 100 mg capsule 100 mg PO BID-TID PRN (Reason: cough) Qty: 20 RF: 0 albuterol sulfate 90 mcg/actuation HFA aerosol inhaler 2 puff INHALATION Q4-6H PRN (Reason: shortness of breath or wheezing) Qty: 18 RF: 0 No Action polymyxin B sulf-trimethoprim 10,000 unit- 1 mg/mL drops 2 drp ophthalmic (eye) QID Qty: 10 RF: 0 cyanocobalamin (vitamin B-12) 1,000 MCG tablet extended release 1,000 mcg PO DAILY Qty: 0 RF: 0 ibuprofen 200 mg Capsule 3 tab PO TID PRN (Reason: pain) RF: 0 acetaminophen [Tylenol Extra Strength] 500 mg Tablet 1,000 mg PO Q6H PRN (Reason: pain) RF: 0 aspirin 81 mg Tablet,Delayed Release (Dr/Ec) 81 mg PO BID Qty: 0 RF: 0 Referrals: Nelly Villalobos ARNP [Primary Care Provider] -
[2019-04-10 18:11] LABS: CKMB % Relative Index 0.8 % (1.5-5.0); Creatine Kinase MB 0.83 ng/mL (<2.37)
--- NOTE | 2019-04-10 18:16 | DI.RAD.S_ITS ---
PROCEDURE: XR CHEST 1V INDICATIONS: sob TECHNIQUE: One view of the chest was acquired. COMPARISON: [facility], , CHEST 2 VIEW, 05/11/2007, 12:30. FINDINGS: Surgical changes and devices: None. Lungs and pleura: Diffuse interstitial changes suggest interstitial pulmonary edema. No pleural effusions or pneumothorax. Mediastinum: Mediastinal contours appear normal. Heart size is normal. Bones and chest wall: No suspicious bony lesions. Overlying soft tissues appear unremarkable. IMPRESSION: Probable interstitial pulmonary edema. Dictated by: Tim Bhat M.D. on 04/10/2019 at 18:39 Approved by: Tim Bhat M.D. on 04/10/2019 at 18:40
[2019-04-10 18:22] LABS: Influenza A - CEPHEID Flu A NEGATIVE (NEGATIVE); Influenza B - CEPHEID Flu B NEGATIVE (NEGATIVE)
[2019-04-10 18:50] VITALS: BP 145/76; PULSE 72; RESP 19; O2SAT 95
== END 2019-04-10 19:10 | disposition home or self-care (01) ==
PROVIDERS: Emergency Medicine; Emergency Provider Emergency Medicine; Family Provider Nurse Practitioner Family; PCP Nurse Practitioner Family
DX: R05 Cough (principal); R06.02 Shortness of breath
CPT/HCPCS: 36415; 71045; 80048; 82550; 82553; 83880; 84484; 85025; 87502; 93005; 99284; 99285

== ENCOUNTER 2019-09-23 20:04 | Emergency (ER) | payer MEDICARE, SELFPAY ==
[2017-12-02 15:06] VITALS: BMI 22.1
[2019-09-23 20:06] VITALS: BP 179/84; PULSE 77; RESP 18; TEMP 36.8; O2SAT 98; BMI 20.3
--- NOTE | 2019-09-23 20:30 | DI.CT.S_ITS ---
PROCEDURE: CT HEAD/BRAIN WO CON INDICATIONS: fall with head injury, intoxicated TECHNIQUE: Noncontrast 4.5 mm thick angled axial sections acquired from the foramen magnum to the vertex, with coronal and sagittal reformats. For radiation dose reduction, the following was used: automated exposure control, adjustment of mA and/or kV according to patient size. COMPARISON: None. FINDINGS: Image quality: Excellent. CSF spaces: Basal cisterns are patent. No extra-axial fluid collections. The ventricles are symmetric in size and shape. Brain: No intracranial bleeds or masses. There is cerebral volume loss for age, with resultant ventricular and sulcal prominence. There are periventricular and deep white matter chronic small vessel ischemic changes. There is intracranial internal carotid artery atherosclerosis. Skull and face: Calvarium and visualized facial bones appear intact, without suspicious lesions. Severe left frontal scalp laceration and soft tissue swelling. Sinuses: Visualized sinuses and mastoids are clear. IMPRESSION: Severe left frontal scalp laceration and soft tissue swelling No acute intracranial process. Dictated by: Cristo Anderson M.D. on 09/23/2019 at 21:49 Approved by: Cristo Anderson M.D. on 09/23/2019 at 21:50
--- NOTE | 2019-09-23 20:30 | DI.CT.S_ITS ---
PROCEDURE: CT FACIAL BONES WO CON INDICATIONS: fall with facial injury TECHNIQUE: Noncontrast 2.5 mm thick axial images acquired from the mandible through the frontal sinuses, with coronal and sagittal reformatting. For radiation dose reduction, the following was used: automated exposure control, adjustment of mA and/or kV according to patient size. COMPARISON: None. FINDINGS: Image quality: Excellent. Bones and teeth: Orbital huitron are intact. Sinus huitron show no fracture or deformity. Nasal bones and septum are intact. Visualized portions of the mandible demonstrate no fractures or subluxation. Zygomatic arches are intact. Pterygoid plates are intact. Visualized portions of the skull base and auditory canals are intact. Sinuses: Paranasal sinuses are aerated, without fluid levels, mucosal thickening, or mucoceles. Mastoid air cells are aerated. Severe left frontal scalp laceration Vascular: Visualized vascular structures appear normal in the absence of contrast. Bony vascular foramina and canals are intact. IMPRESSION: No fracture Severe left frontal scalp laceration Dictated by: Cristo Anderson M.D. on 09/23/2019 at 21:51 Approved by: Cristo Anderson M.D. on 09/23/2019 at 21:53
--- NOTE | 2019-09-23 20:33 | ED.HEATRA ---
HPI - Head Injury General Chief complaint: Head Injury Stated complaint: FALL HIT HEAD Time Seen by Provider: 09/23/19 20:10 Source: patient Mode of arrival: Wheelchair Limitations: no limitations History of Present Illness HPI Narrative: 63-year-old female daily smoker with history of alcohol abuse presents with a chief complaint of a fall from ground level with a large facial laceration. She had a few drinks this afternoon and was in the bathroom when she tripped and fell forward striking her head on an unknown object. She denies any loss of consciousness and has full recall. She denies any nausea, vomiting, confusion or repeat questioning. She has no neck or back pain. She denies any other injury. She is unsure when her last tetanus was. She takes no blood thinners. MD Complaint: head injury and fall Onset (ago): hour(s) Mechanism of Injury: fall Place: home Loss of Consciousness: no Location of injury: frontal Related Data Home Medications Medication Instructions Recorded Confirmed cyanocobalamin (vitamin B-12) 1,000 mcg PO DAILY #0 03/14/16 12/02/17 acetaminophen [Tylenol Extra 1,000 mg PO Q6H PRN 10/17/17 12/02/17 Strength] ibuprofen 3 tab PO TID PRN 10/17/17 12/02/17 Previous Rx's Medication Instructions Recorded aspirin 81 mg PO BID #0 tab 11/03/17 polymyxin B sulfate 10,000 2 drp OPHTHALMIC (EYE) QID #10 ml 12/02/17 unit-trimethoprim 1 mg/mL eye drops albuterol sulfate 2 puff INHALATION Q4-6H PRN #18 04/10/19 gram benzonatate [Tessalon Perles] 100 mg PO BID-TID PRN #20 cap 04/10/19 cephalexin [Keflex] 500 mg PO QID 7 Days #28 cap 09/23/19 Allergies Allergy/AdvReac Type Severity Reaction Status Date / Time bupropion [From WELLBUTRIN] Allergy Severe rash, Verified 12/02/17 15:48 rapid heart rate niacin [NIACIN] Allergy Severe Itching Verified 12/02/17 15:48 nicotine [NICOTINE] Allergy Severe Patch-rash Verified 12/02/17 15:48 Review of Systems Constitutional Constitutional: Denies chills, Denies fatigue, Denies fever(s), Denies frequent falls, Denies lethargy and Denies weakness Eyes Eyes: Denies change in vision, Denies eye discharge, Denies irritation and Denies loss of vision ENT Ears, Nose, Mouth, and Throat: Denies change in voice, Denies dizziness, Denies neck pain, Denies sore throat and Denies throat swelling Cardiovascular Cardiovascular: Denies chest pain, Denies irregular heart rhythm, Denies lightheadedness, Denies palpitations, Denies dyspnea, Denies dyspnea on exertion and Denies orthopnea Respiratory Respiratory: Denies cough, Denies dyspnea, Denies dyspnea on exertion and Denies wheezing Gastrointestinal Gastrointestinal: Denies abdominal pain, Denies change in bowel habits, Denies diarrhea, Denies nausea and Denies vomiting Musculoskeletal Musculoskeletal: Denies neck pain and Denies numbness Integumentary/Breasts Skin/Breast: Denies pruritus, Denies erythema, Denies rash and Reports wounds Neurologic Neurologic: Denies behavioral changes, Denies confusion, Denies dizziness, Denies frequent falls, Denies loss of vision, Denies numbness and Denies weakness Psychiatric Psychiatric: Denies anxiety, Denies behavioral changes, Denies confusion, Denies depression, Denies homicidal ideation and Denies suicidal ideation Endocrine Endocrine: Denies fatigue, Denies flushing and Denies palpitations Hematologic/Lymphatic Hematologic/Lymphatic: Denies easy bruising Allergic/Immunologic Allergic/Immunologic: Denies urticaria, Denies throat swelling and Denies wheezing Patient History Medical History Bronchitis (Acute) Depression (Acute) Elevated cholesterol (Acute) Endometriosis (Acute) Pneumonia (Acute) RLS (restless legs syndrome) (Acute) Surgical History History of skin graft (Acute) Hx of dilation and curettage (Acute) Hx of tonsillectomy (Acute) Social History household members: spouse Smoking Status: Current some day smoker alcohol intake: current Smoking Status: Current some day smoker alcohol intake frequency: a few times a week Alcohol type: hard liquor Substance Use Type: marijuana Exam Narrative Exam Narrative: GENERAL: [63] year old patient appears stated age. Well-nourished, well-developed patient, in mild distress. GCS 15 HEAD: Large, gaping 10 cm laceration on left forehead with minimal active bleeding. No evidence of depressed skull fracture. There is bruising, tenderness and swelling of the left zygoma and bridge of the nose. EYES: Pupils equal round and reactive. Extraocular motions intact. No scleral icterus. No injection or drainage. ENT: No nasal septal hematoma, hyphema or hemotympanum. Nose without bleeding, purulent drainage. Throat without erythema, tonsillar hypertrophy or exudate. Airway patent. NECK: Trachea midline. Non tender CARDIOVASCULAR: Regular rate and rhythm without murmurs, gallops, or rubs. RESPIRATORY: Clear to auscultation. Breath sounds equal bilaterally. No wheezes, rales, or rhonchi. GASTROINTESTINAL: Abdomen soft, non-tender, nondistended. EXTREMITIES: No edema or joint tenderness. BACK: Nontender without deformity or crepitance. No flank tenderness. NEURO: AOx3. SKIN: No rash or erythema of visible areas Initial Vital Signs Initial Vital Signs: Vital Signs Temperature 98.2 F 09/23/19 20:06 Pulse Rate 77 09/23/19 20:06 Respiratory Rate 18 09/23/19 20:06 Blood Pressure 179/84 H 09/23/19 20:06 Pulse Oximetry 98 09/23/19 20:06 Procedures Laceration Repair Laceration 1: Site: face Side (If applicable): left Size (cm): 10 Description: flap Depth: involves muscle layer Local Anesthetic: bupivacaine 0.5% and with epi Pre-repair: wound explored and irrigated extensively Skin layer closed with: nylon Size (cm): 5-0 Number of sutures: 17 Technique: simple, interrupted Subcutaneous layer closed with: vicryl Size: 4-0 Number of sutures: 3 Technique: simple, interrupted Scores GCS Strunk coma scale eye opening: Spontaneous Strunk coma scale verbal response: Orientated Strunk coma scale motor response: Obey commands Marilee coma scale total score: 15 Course Orders Ordered: ED Orders 09/23/19 20:30 CT facial bones wo con Stat CT head/brain wo con Stat 09/23/19 20:35 CT cervical spine wo con Stat Discontinued Medications Bacitracin (Bacitracin) 1 applic TOP NOW ONE Stop: 09/23/19 23:04 Last Admin: 09/23/19 23:12 Dose: 1 applic Documented by: AVIVA Bupivacaine HCl/Epinephrine Bitart (Sensorcaine 0.5% W/ Epi (Pf)) 5 ml SUBCUT NOW ONE Stop: 09/23/19 20:31 Last Admin: 09/23/19 22:23 Dose: 5 ml Documented by: AVIVA Cefazolin Sodium (Keflex 250 Mg Prepack) 1 bottle MISC SEEINSTR ONE Stop: 09/23/19 22:45 Last Admin: 09/23/19 22:56 Dose: 250 mg Documented by: AVIVA Diphtheria/Tetanus/Acell Pertussis (Adacel) 0.5 ml IM .ONCE ONE Stop: 09/23/19 20:31 Last Admin: 09/23/19 20:53 Dose: 0.5 ml Documented by: AVIVA Vital Signs Vital signs: Vital Signs - 8 hr 09/23/19 20:06 09/23/19 22:54 Temperature 98.2 F Pulse Rate 77 65 Respiratory Rate 18 14 Blood Pressure 179/84 H 127/64 Pulse Oximetry 98 98 MDM - Head Injury Imaging Data CT scan - head: Radiologist's Impression: [place] [address] CT Scan Report Signed Patient: Jeanine Brink [facility]#: [id number] : 4Acct:[id number] Age/Sex: 63 / FDate of Service: 09/23/19 Loc: ED Accession Number: [id number] Procedure: CT head/brain wo con Ordering Provider: Miguel Ángel Guy D.O. PROCEDURE: CT HEAD/BRAIN WO CON INDICATIONS: fall with head injury, intoxicated TECHNIQUE: Noncontrast 4.5 mm thick angled axial sections acquired from the foramen magnum to the vertex, with coronal and sagittal reformats. For radiation dose reduction, the following was used: automated exposure control, adjustment of mA and/or kV according to patient size. COMPARISON: None. FINDINGS: Image quality: Excellent. CSF spaces: Basal cisterns are patent. No extra-axial fluid collections. The ventricles are symmetric in size and shape. Brain: No intracranial bleeds or masses. There is cerebral volume loss for age, with resultant ventricular and sulcal prominence. There are periventricular and deep white matter chronic small vessel ischemic changes. There is intracranial internal carotid artery atherosclerosis. Skull and face: Calvarium and visualized facial bones appear intact, without suspicious lesions. Severe left frontal scalp laceration and soft tissue swelling. Sinuses: Visualized sinuses and mastoids are clear. IMPRESSION: Severe left frontal scalp laceration and soft tissue swelling No acute intracranial process. Dictated by: Cristo Anderson M.D. on 09/23/2019 at 21:49 Approved by: Crsito Anderson M.D. on 09/23/2019 at 21:50 CT - cervical spine: Radiologist's Impression: [address] [address] [address] Scan Report Signed Patient: Jeanine Brink [facility]#: [id number] : [id number]:[id number] Age/Sex: 63 / FDate of Service: 09/23/19 Loc: ED Accession Number: [id number] Procedure: CT cervical spine wo con Ordering Provider: Miguel Ángel Guy D.O. PROCEDURE: CT CERVICAL SPINE WO CON INDICATIONS: fall with head injury and etoh TECHNIQUE: Noncontrast 3 mm thick sections acquired from the skull base to the T4 level. Sagittal and coronal reformats were then constructed. For radiation dose reduction, the following was used: automated exposure control, adjustment of mA and/or kV according to patient size. COMPARISON: [facility], CT, CT FACIAL BONES WO CON, 09/23/2019, 21:09. FINDINGS: Image quality: suboptimal due to motion artifact. Bones: No fractures or dislocations. Visualized superior ribs are intact. Cervical spondylosis and facet arthropathy. Straightening of the normal lordotic curvature. Soft tissues: Prevertebral soft tissues are normal in thickness. No paravertebral hematomas. No apical pneumothoraces. IMPRESSION: No definite fracture however suboptimal evaluation due to uncontrollable motion artifact Dictated by: Cristo Anderson M.D. on 09/23/2019 at 21:53 Approved by: Cristo Anderson M.D. on 09/23/2019 at 21:55 Facial Bones: Radiologist's Impression: Jeanine Brink 63 F [address] [address] [address] Scan Report Signed Patient: Jeanine Brink [facility]#: [id number] : [id number]:[id number] Age/Sex: 63 / FDate of Service: 09/23/19 Loc: ED Accession Number: [id number] Procedure: CT facial bones wo con Ordering Provider: Miguel Ángel Guy D.O. PROCEDURE: CT FACIAL BONES WO CON INDICATIONS: fall with facial injury TECHNIQUE: Noncontrast 2.5 mm thick axial images acquired from the mandible through the frontal sinuses, with coronal and sagittal reformatting. For radiation dose reduction, the following was used: automated exposure control, adjustment of mA and/or kV according to patient size. COMPARISON: None. FINDINGS: Image quality: Excellent. Bones and teeth: Orbital huitron are intact. Sinus huitron show no fracture or deformity. Nasal bones and septum are intact. Visualized portions of the mandible demonstrate no fractures or subluxation. Zygomatic arches are intact. Pterygoid plates are intact. Visualized portions of the skull base and auditory canals are intact. Sinuses: Paranasal sinuses are aerated, without fluid levels, mucosal thickening, or mucoceles. Mastoid air cells are aerated. Severe left frontal scalp laceration Vascular: Visualized vascular structures appear normal in the absence of contrast. Bony vascular foramina and canals are intact. IMPRESSION: No fracture Severe left frontal scalp laceration Dictated by: Cristo Anderson M.D. on 09/23/2019 at 21:51 Approved by: Cristo Anderson M.D. on 09/23/2019 at 21:53 Discharge Plan Departure Patient Disposition: Home Clinical Impression: Closed head injury Qualifiers: Encounter type: initial encounter Qualified Code(s): S09.90XA - Unspecified injury of head, initial encounter Complex laceration of face Qualifiers: Encounter type: initial encounter Qualified Code(s): S01.91XA - Laceration without foreign body of unspecified part of head, initial encounter Discharge Date/Time: 09/23/19 23:15 Instructions: DI for Laceration Repair -- Complex Suture, DI for Closed Head Injury Activity Restrictions/Additional Instructions: *You have been diagnosed with [ fall with complex facial laceration ] *What to do: *Take medications as directed *Follow up with your primary care provider in 2-3 days, call for an appointment. Let them know you were seen in the Emergency Department and that we ask that you be seen in follow up, you will also need a follow up at the 7-10 day ambreen for suture removal. *Return to ER if you should have any new, worsening or concerning symptoms, Prescriptions: New cephalexin [Keflex] 500 mg capsule 500 mg PO QID 7 Days Qty: 28 RF: 0 No Action polymyxin B sulf-trimethoprim 10,000 unit- 1 mg/mL drops 2 drp ophthalmic (eye) QID Qty: 10 RF: 0 cyanocobalamin (vitamin B-12) 1,000 MCG tablet extended release 1,000 mcg PO DAILY Qty: 0 RF: 0 ibuprofen 200 mg Capsule 3 tab PO TID PRN (Reason: pain) RF: 0 acetaminophen [Tylenol Extra Strength] 500 mg Tablet 1,000 mg PO Q6H PRN (Reason: pain) RF: 0 aspirin 81 mg Tablet,Delayed Release (Dr/Ec) 81 mg PO BID Qty: 0 RF: 0 benzonatate [Tessalon Perles] 100 mg capsule 100 mg PO BID-TID PRN (Reason: cough) Qty: 20 RF: 0 albuterol sulfate 90 mcg/actuation HFA aerosol inhaler 2 puff INHALATION Q4-6H PRN (Reason: shortness of breath or wheezing) Qty: 18 RF: 0 Referrals: [facility] [Outside] Nelly Villalobos ARNP [Primary Care Provider] -
[2019-09-23] MEDS: TET,DIPH,PERTUSS(ACELL),VAC/PF 0.5 ML SYRINGE IM (20:53)
[2019-09-23] MEDS: BUPIVACAINE 0.5% W/ EPI (PF) 30 ML VIAL 5 ML SUBCUT (22:23)
[2019-09-23 22:54] VITALS: BP 127/64; PULSE 65; RESP 14; O2SAT 98
[2019-09-23] MEDS: cephALEXin 250 MG PREPACK 1 BOTTLE MISC (22:56)
[2019-09-23] MEDS: BACITRACIN OINT 0.9 GM PCKT 1 APPLIC TOP (23:12)
== END 2019-09-23 23:15 | disposition home or self-care (01) ==
PROVIDERS: Emergency Provider Emergency Medicine; Family Provider Nurse Practitioner Family; PCP Nurse Practitioner Family
DX: S01.81XA Laceration without foreign body of other part of head, initial encounter (principal); S09.90XA Unspecified injury of head, initial encounter; W01.198A Fall on same level from slipping, tripping and stumbling with subsequent striking against other object, initial encounter; Z23 Encounter for immunization
CPT/HCPCS: 13132; 13133; 70450; 70486; 72125; 90471; 99284; 90715

== ENCOUNTER → 2019-12-04 08:57 | Outpatient (CLI) | payer MEDICARE, SELFPAY ==
[2017-12-02 15:06] VITALS: BMI 22.1
[2019-12-04 09:46] LABS: Add Manual Diff / Slide Review NO; Basophils Absolute Auto 0 /uL (0-100); Basophils Percent Auto 0.8 % (0-2); Eosinophils Absolute Auto 100 /uL (0-450); Eosinophils Percent Auto 1.6 % (2-4); Hematocrit 44.9 % (36-46); Hemoglobin 15.3 g/dL (12.0-16.0); Lymphocytes Absolute Auto 2100 /uL (1100-4500); Lymphocytes Percent Auto 35.1 % (25-40); Mean Corpuscular Hemoglobin 34.2 PG (26-34); Mean Corpuscular Volume 100.7 fL (80-100); Monocytes Absolute Auto 300 /uL (0-900); Monocytes Percent Auto 4.7 % (3-14); Neutrophils Absolute Auto 3500 /uL (1500-7000); Neutrophils Percent Auto 57.8 % (50-75); Platelet Count 194 X10^3/uL (150-400); Red Blood Cell Count 4.46 X10^6/uL (4.0-5.2); Red Cell Distribution Width 13.1 % (11.6-14.8)
[2019-12-04 10:21] LABS: Alanine Aminotransferase 17 IU/L (<35); Albumin 4.3 g/dL (3.5-5.0); Albumin Globulin Ratio 1.5 (1.0-2.8); Alkaline Phosphatase 76 U/L (38-126); Aspartate Aminotransferase 25 IU/L (14-36); BUN Creatinine Ratio 18.9 (6-22); Bilirubin Total 0.7 mg/dL (0.2-1.3); Blood Urea Nitrogen 17 mg/dL (7-17); Calcium 9.7 mg/dL (8.4-10.2); Carbon Dioxide 31 mmol/L (22-32); Chloride 103 mmol/L (98-107); Cholesterol 257 mg/dL (140-199); Estimated Glomerular Filt Rate > 60.0 mL/min (>60); Globulin 2.9 g/dL (1.7-4.1); Glucose 114 mg/dL (80-110); HDL Cholesterol 68 mg/dL (40-60); HEMOLYSIS < 15 (0-50); LDL Cholesterol Calculated 148 mg/dL (<100); Potassium 4.8 mmol/L (3.4-5.1); Sodium 139 mmol/L (137-145); Total Protein 7.2 g/dL (6.3-8.2); Triglycerides 204 mg/dL (35-150)
[2019-12-04 10:35] LABS: TSH w/ Reflex to FT4 2.46 uIU/mL (0.47-4.68)
[2019-12-04 19:38] LABS: Hemoglobin A1C% w Est Avg Glu 5.4 % (4.0-6.0)
[2019-12-04 20:25] LABS: Vitamin B12 941 pg/mL (239-931)
== END ==
PROVIDERS: Family Provider Nurse Practitioner Family; PCP Registered Nurse Diabetes Educator; Referring Provider Registered Nurse Diabetes Educator; Visit Provider Registered Nurse Diabetes Educator
DX: Z00.00 Encounter for general adult medical examination without abnormal findings (principal); E78.5 Hyperlipidemia, unspecified; D75.89 Other specified diseases of blood and blood-forming organs; R73.01 Impaired fasting glucose
CPT/HCPCS: 36415; 80053; 80061; 82607; 83036; 84443; 85025

== ENCOUNTER → 2019-12-07 09:32 | Outpatient (CLI) | payer MEDICARE, SELFPAY ==
[2017-12-02 15:06] VITALS: BMI 22.1
--- NOTE | 2019-12-07 09:34 | DI.MG.S_ITS ---
BILATERAL DIGITAL SCREENING MAMMOGRAM 3D/2D WITH CAD: 12/07/2019 CLINICAL: Routine screening. Comparison is made to exams dated: 06/10/2017 mammogram and 04/12/2007 mammogram - [facility]. There are scattered fibroglandular elements in both breasts. Current study was also evaluated with a Computer Aided Detection (CAD) system. There are benign calcifications in both breasts. No significant masses, calcifications, or other findings are seen in either breast. There has been no significant interval change. IMPRESSION: BENIGN There is no mammographic evidence of malignancy. A 1 year screening mammogram is recommended. This exam was interpreted at Station ID: [id number]. NOTE: For mammograms, a report in lay terms will be sent to the patient. Approximately 15% of breast malignancies will not be visualized mammographically. In the management of a palpable breast mass, a negative mammogram must not discourage biopsy of a clinically suspicious lesion. Electronically Signed By: David oneal/joon:12/09/2019 09:27:28 letter sent: Normal Exam ACR BI-RADS Category 2: Benign Finding(s) 3342F
== END ==
PROVIDERS: Family Provider Nurse Practitioner Family; PCP Registered Nurse Diabetes Educator; Referring Provider Registered Nurse Diabetes Educator; Visit Provider Registered Nurse Diabetes Educator
DX: Z12.31 Encounter for screening mammogram for malignant neoplasm of breast (principal)
CPT/HCPCS: 77063; 77067

== ENCOUNTER → 2020-02-18 09:51 | Outpatient (CLI) | payer MEDICARE, SELFPAY ==
[2017-12-02 15:06] VITALS: BMI 22.1
[2020-02-18 11:32] LABS: Add Manual Diff / Slide Review NO; Basophils Absolute Auto 0 /uL (0-100); Basophils Percent Auto 0.5 % (0-2); Eosinophils Absolute Auto 100 /uL (0-450); Eosinophils Percent Auto 1.7 % (2-4); Hematocrit 44.7 % (36-46); Hemoglobin 15.1 g/dL (12.0-16.0); Lymphocytes Absolute Auto 1800 /uL (1100-4500); Mean Corpuscular HGB Conc 33.8 % (30-36); Mean Corpuscular Hemoglobin 33.9 PG (26-34); Mean Corpuscular Volume 100.5 fL (80-100); Monocytes Absolute Auto 200 /uL (0-900); Monocytes Percent Auto 4.1 % (3-14); Neutrophils Absolute Auto 3400 /uL (1500-7000); Neutrophils Percent Auto 61.7 % (50-75); Platelet Count 175 X10^3/uL (150-400); Red Blood Cell Count 4.45 X10^6/uL (4.0-5.2); Red Cell Distribution Width 12.8 % (11.6-14.8); White Blood Cell Count 5.5 X10^3/uL (4.5-11.0)
[2020-02-18 12:06] LABS: Cholesterol 203 mg/dL (140-199); HDL Cholesterol 59 mg/dL (40-60); LDL Cholesterol Calculated 100 mg/dL (<100); Triglycerides 221 mg/dL (35-150)
== END ==
PROVIDERS: Family Provider Nurse Practitioner Family; PCP Registered Nurse Diabetes Educator; Referring Provider Registered Nurse Diabetes Educator; Visit Provider Registered Nurse Diabetes Educator
DX: D75.89 Other specified diseases of blood and blood-forming organs (principal); E78.5 Hyperlipidemia, unspecified
CPT/HCPCS: 36415; 80061; 85025

== ENCOUNTER → 2020-06-22 08:21 | Outpatient (CLI) | payer MEDICARE, SELFPAY ==
[2017-12-02 15:06] VITALS: BMI 22.1
[2020-06-22 10:25] LABS: Cholesterol 178 mg/dL (140-199); HDL Cholesterol 55 mg/dL (40-60); LDL Cholesterol Calculated 105 mg/dL (<100); Triglycerides 90 mg/dL (35-150)
== END ==
PROVIDERS: Family Provider Nurse Practitioner Family; PCP Registered Nurse Diabetes Educator; Referring Provider Registered Nurse Diabetes Educator; Visit Provider Registered Nurse Diabetes Educator
DX: E78.5 Hyperlipidemia, unspecified (principal)
CPT/HCPCS: 36415; 80061

== ENCOUNTER → 2020-09-23 07:51 | Outpatient (CLI) | payer MEDICARE, SELFPAY ==
[2020-08-17 10:54] VITALS: BMI 22.1
[2020-09-23 08:41] LABS: Add Manual Diff / Slide Review NO; Basophils Absolute Auto 0 /uL (0-100); Basophils Percent Auto 0.9 % (0-2); Eosinophils Absolute Auto 100 /uL (0-450); Eosinophils Percent Auto 2.3 % (2-4); Hematocrit 43.3 % (36-46); Hemoglobin 14.9 g/dL (12.0-16.0); Lymphocytes Absolute Auto 2100 /uL (1100-4500); Lymphocytes Percent Auto 38.4 % (25-40); Mean Corpuscular HGB Conc 34.5 % (30-36); Mean Corpuscular Hemoglobin 34.6 PG (26-34); Mean Corpuscular Volume 100.4 fL (80-100); Monocytes Absolute Auto 300 /uL (0-900); Monocytes Percent Auto 4.8 % (3-14); Neutrophils Absolute Auto 2900 /uL (1500-7000); Neutrophils Percent Auto 53.6 % (50-75); Platelet Count 179 X10^3/uL (150-400); Red Blood Cell Count 4.32 X10^6/uL (4.0-5.2); Red Cell Distribution Width 12.7 % (11.6-14.8); White Blood Cell Count 5.4 X10^3/uL (4.5-11.0)
[2020-09-23 08:46] LABS: Hemoglobin A1C% w Est Avg Glu 5.6 % (4.0-6.0)
[2020-09-23 09:01] LABS: Alanine Aminotransferase 30 IU/L (<35); Albumin 4.1 g/dL (3.5-5.0); Albumin Globulin Ratio 1.7 (1.0-2.8); Alkaline Phosphatase 75 U/L (38-126); Aspartate Aminotransferase 35 IU/L (14-36); Bilirubin Total 0.8 mg/dL (0.2-1.3); Blood Urea Nitrogen 20 mg/dL (7-17); Calcium 9.6 mg/dL (8.4-10.2); Carbon Dioxide 30 mmol/L (22-32); Chloride 108 mmol/L (98-107); Cholesterol 177 mg/dL (140-199); Estimated Glomerular Filt Rate > 60.0 mL/min (>60); Globulin 2.4 g/dL (1.7-4.1); Glucose 117 mg/dL (80-110); HDL Cholesterol 64 mg/dL (40-60); HEMOLYSIS < 15 (0-50); LDL Cholesterol Calculated 94 mg/dL (<100); Potassium 4.1 mmol/L (3.4-5.1); Sodium 141 mmol/L (137-145); Total Protein 6.5 g/dL (6.3-8.2); Triglycerides 97 mg/dL (35-150)
[2020-09-23 09:27] LABS: TSH w/ Reflex to FT4 1.52 uIU/mL (0.47-4.68)
== END ==
PROVIDERS: Family Provider Nurse Practitioner Family; PCP Registered Nurse Diabetes Educator; Referring Provider Registered Nurse Diabetes Educator; Visit Provider Registered Nurse Diabetes Educator
DX: E78.5 Hyperlipidemia, unspecified (principal); R73.01 Impaired fasting glucose; D75.89 Other specified diseases of blood and blood-forming organs
CPT/HCPCS: 36415; 80053; 80061; 83036; 84443; 85025

== ENCOUNTER → 2020-09-26 10:52 | Outpatient (CLI) | payer MEDICARE, SELFPAY ==
[2020-08-17 10:54] VITALS: BMI 22.1
[2020-09-26 11:14] LABS: COVID19 -Nasal RAPID Negative (Negative)
== END ==
PROVIDERS: Family Provider Nurse Practitioner Family; PCP Registered Nurse Diabetes Educator; Referring Provider Physician Assistant; Visit Provider Physician Assistant
DX: Z20.822 Contact with and (suspected) exposure to COVID-19 (principal)
CPT/HCPCS: 87635

== ENCOUNTER → 2021-03-05 11:47 | Outpatient (CLI) | payer MEDICARE, SELFPAY ==
[2020-08-17 10:54] VITALS: BMI 22.1
[2021-03-05 19:32] LABS: COVID19 -Nasal RAPID Negative (Negative)
== END ==
PROVIDERS: Family Provider Nurse Practitioner Family; PCP Registered Nurse Diabetes Educator; Visit Provider Nurse Practitioner Family
DX: Z20.822 Contact with and (suspected) exposure to COVID-19 (principal); R53.83 Other fatigue
CPT/HCPCS: 87635

== ENCOUNTER → 2021-09-27 08:54 | Outpatient (CLI) | payer MEDICARE, SELFPAY ==
[2020-08-17 10:54] VITALS: BMI 22.1
[2021-09-27 09:45] LABS: Hematocrit 44.9 % (36-46); Hemoglobin 15.6 g/dL (12.0-16.0); Mean Corpuscular HGB Conc 34.8 % (30-36); Mean Corpuscular Hemoglobin 35.4 PG (26-34); Mean Corpuscular Volume 101.5 fL (80-100); Platelet Count 184 X10^3/uL (150-400); Red Blood Cell Count 4.43 X10^6/uL (4.0-5.2); White Blood Cell Count 5.7 X10^3/uL (4.5-11.0)
[2021-09-27 09:55] LABS: Hemoglobin A1C% w Est Avg Glu 5.5 % (4.0-6.0)
[2021-09-27 10:30] LABS: Alanine Aminotransferase 17 IU/L (<35); Albumin 4.3 g/dL (3.5-5.0); Albumin Globulin Ratio 1.7 (1.0-2.8); Alkaline Phosphatase 80 U/L (38-126); Aspartate Aminotransferase 24 IU/L (14-36); BUN Creatinine Ratio 27.1 (6-22); Bilirubin Total 1.3 mg/dL (0.2-1.3); Blood Urea Nitrogen 23 mg/dL (7-17); Calcium 9.3 mg/dL (8.4-10.2); Carbon Dioxide 28 mmol/L (22-32); Chloride 104 mmol/L (98-107); Cholesterol 255 mg/dL (140-199); Estimated Glomerular Filt Rate > 60 mL/min (>60); Globulin 2.6 g/dL (1.7-4.1); Glucose 123 mg/dL (80-110); HDL Cholesterol 64 mg/dL (40-60); HEMOLYSIS < 15 (0-50); LDL Cholesterol Calculated 152 mg/dL (<100); Potassium 4.1 mmol/L (3.4-5.1); Sodium 139 mmol/L (137-145); Total Protein 6.9 g/dL (6.3-8.2); Triglycerides 194 mg/dL (35-150)
[2021-09-27 10:57] LABS: TSH w/ Reflex to FT4 1.48 uIU/mL (0.47-4.68)
[2021-09-27 17:56] LABS: Folate 7.4 ng/mL (2.76-20.0); Vitamin B12 Reflex MMA if <400 > 1000 pg/mL (239-931)
== END ==
PROVIDERS: Family Provider Nurse Practitioner Family; PCP Registered Nurse Diabetes Educator; Referring Provider Registered Nurse Diabetes Educator; Visit Provider Registered Nurse Diabetes Educator
DX: E78.5 Hyperlipidemia, unspecified (principal); R73.01 Impaired fasting glucose; R03.0 Elevated blood-pressure reading, without diagnosis of hypertension; D75.89 Other specified diseases of blood and blood-forming organs
CPT/HCPCS: 36415; 80053; 80061; 82607; 82746; 83036; 84443; 85027

== ENCOUNTER → 2021-12-23 12:51 | Outpatient (ROUT) | payer MEDICARE, SELFPAY ==
[2020-08-17 10:54] VITALS: BMI 22.1
[2021-12-24 11:50] LABS: Fecal Immunochemical Test Negative (Negative)
== END ==
PROVIDERS: Family Provider Nurse Practitioner Family; PCP Registered Nurse Diabetes Educator; Visit Provider Family Medicine
DX: Z12.11 Encounter for screening for malignant neoplasm of colon (principal)
CPT/HCPCS: 82274

== ENCOUNTER → 2022-04-25 09:56 | Outpatient (CLI) | payer MEDICARE, SELFPAY ==
[2020-08-17 10:54] VITALS: BMI 22.1
[2022-04-25 10:50] LABS: Hemoglobin A1C% w Est Avg Glu 5.7 % (4.0-6.0)
[2022-04-25 10:59] LABS: Cholesterol 187 mg/dL (140-199); Glucose 113 mg/dL (80-110); HDL Cholesterol 56 mg/dL (40-60); LDL Cholesterol Calculated 82 mg/dL (<100); Triglycerides 246 mg/dL (35-150)
== END ==
PROVIDERS: Family Provider Nurse Practitioner Family; PCP Registered Nurse Diabetes Educator; Referring Provider Registered Nurse Diabetes Educator; Visit Provider Registered Nurse Diabetes Educator
DX: E78.5 Hyperlipidemia, unspecified (principal); R73.01 Impaired fasting glucose
CPT/HCPCS: 36415; 80061; 82947; 83036

== ENCOUNTER → 2023-04-25 09:27 | Outpatient (CLI) | payer MEDICARE, SELFPAY ==
[2020-08-17 10:54] VITALS: BMI 22.1
== END ==
PROVIDERS: Family Provider Nurse Practitioner Family; PCP Registered Nurse Diabetes Educator; Visit Provider Physician Assistant Surgical
DX: R39.89 Other symptoms and signs involving the genitourinary system (principal)
CPT/HCPCS: 87086

== ENCOUNTER → 2023-04-26 15:09 | Outpatient (CLI) | payer MEDICARE, SELFPAY ==
[2020-08-17 10:54] VITALS: BMI 22.1
[2023-05-02 11:07] LABS: Fecal Immunochemical Test Negative (Negative)
== END ==
PROVIDERS: Family Provider Nurse Practitioner Family; PCP Registered Nurse Diabetes Educator; Referring Provider Physician Assistant Surgical; Visit Provider Physician Assistant Surgical
DX: Z12.11 Encounter for screening for malignant neoplasm of colon (principal)
CPT/HCPCS: 82274

== ENCOUNTER → 2023-05-03 08:38 | Outpatient (CLI) | payer MEDICARE, SELFPAY ==
[2020-08-17 10:54] VITALS: BMI 22.1
[2023-05-03 09:51] LABS: Add Manual Diff / Slide Review NO; Basophils Absolute Auto 0 /uL (0-100); Basophils Percent Auto 0.6 % (0-2); Eosinophils Absolute Auto 100 /uL (0-450); Eosinophils Percent Auto 2.1 % (2-4); Hematocrit 43.9 % (36-46); Hemoglobin 15.3 g/dL (12.0-16.0); Lymphocytes Absolute Auto 1400 /uL (1100-4500); Lymphocytes Percent Auto 23.9 % (25-40); Mean Corpuscular HGB Conc 34.8 % (30-36); Mean Corpuscular Volume 103.4 fL (80-100); Monocytes Absolute Auto 300 /uL (0-900); Monocytes Percent Auto 4.7 % (3-14); Neutrophils Absolute Auto 4000 /uL (1500-7000); Neutrophils Percent Auto 68.7 % (50-75); Platelet Count 192 X10^3/uL (150-400); Red Blood Cell Count 4.25 X10^6/uL (4.0-5.2); Red Cell Distribution Width 12.9 % (11.6-14.8); White Blood Cell Count 5.9 X10^3/uL (4.5-11.0)
[2023-05-03 09:59] LABS: Hemoglobin A1C% w Est Avg Glu 5.4 % (4.0-6.0)
[2023-05-03 10:08] LABS: HEMOLYSIS < 15 (0-50); Iron 236 ug/dL (37-170)
[2023-05-03 10:15] LABS: Amylase 40 U/L (30-110); Lipase 70 U/L (23-300)
[2023-05-03 10:17] LABS: Alanine Aminotransferase 14 IU/L (<35); Albumin 4.2 g/dL (3.5-5.0); Albumin Globulin Ratio 1.5 (1.0-2.8); Alkaline Phosphatase 86 U/L (38-126); Aspartate Aminotransferase 27 IU/L (14-36); Bilirubin Total 1.8 mg/dL (0.2-1.3); Blood Urea Nitrogen 24 mg/dL (7-17); Calcium 9.6 mg/dL (8.4-10.2); Carbon Dioxide 26 mmol/L (22-32); Chloride 106 mmol/L (98-107); Cholesterol 150 mg/dL (140-199); Estimated Glomerular Filt Rate > 60 mL/min (>60); Globulin 2.8 g/dL (1.7-4.1); Glucose 118 mg/dL (80-110); HDL Cholesterol 89 mg/dL (40-60); HEMOLYSIS < 15 (0-50); LDL Cholesterol Calculated 37 mg/dL (<100); Potassium 3.7 mmol/L (3.4-5.1); Sodium 140 mmol/L (137-145); Triglycerides 118 mg/dL (35-150)
[2023-05-03 10:18] LABS: Total Iron Binding Capacity 240 ug/dL (265-497); Transferrin 219 mg/dL (206-381)
[2023-05-03 10:21] LABS: Percent Iron Saturation 98 % (15-50)
== END ==
PROVIDERS: Nurse Practitioner Family; Family Provider Nurse Practitioner Family; PCP Registered Nurse Diabetes Educator; Referring Provider Registered Nurse Diabetes Educator; Visit Provider Registered Nurse Diabetes Educator
DX: R10.9 Unspecified abdominal pain (principal); R73.01 Impaired fasting glucose; E78.5 Hyperlipidemia, unspecified; I10 Essential (primary) hypertension; R71.8 Other abnormality of red blood cells
CPT/HCPCS: 36415; 80053; 80061; 82150; 83036; 83540; 83550; 83690; 85025

== ENCOUNTER → 2023-05-17 17:15 | Outpatient (CLI) | payer MEDICARE, SELFPAY ==
[2020-08-17 10:54] VITALS: BMI 22.1
--- NOTE | 2023-05-17 17:16 | DI.MRI.S_ITS ---
PROCEDURE: MR ABDOMEN WO/W CON INDICATIONS: Iron overload and abdominal discomfort TECHNIQUE: Coronal HASTE, axial 2D FLASH in- and [id number]; axial breath-hold T2 FSE. Dynamic axial VIBE during the administration of contrast; post-contrast coronal VIBE or 2D FLASH with fat saturation from the hepatic dome to the iliac crests. Optional diffusion weighted imaging and ADC may be performed. COMPARISON: None. FINDINGS: Image quality: Diagnostic. Lung bases: No basal effusions or hiatal hernia. Normal size heart without effusion. Liver: Normal liver size and signal. Smooth margin. No morphologic changes of cirrhosis. No enhancing mass. Gallbladder: No gallstones or wall thickening. Biliary ducts: No biliary dilatation. Pancreas: Normal signal and morphology. No ductal dilatation. Spleen: Size is within normal limits. Adrenal Glands: No adrenal nodules. Kidneys and Ureters: No hydronephrosis. No solid mass. No complex renal cystic lesion which requires follow up. Stomach and Bowel: Stomach and visible bowel loops are within normal limits. Peritoneum: No abnormal intraperitoneal fluid. No free air. Ventral Wall: No hernia. Abdominal Nodes: No retroperitoneal or mesenteric adenopathy by size criteria. Vessels: Aorta and inferior vena cava are normal in size. Bones: No aggressive osseous abnormality. IMPRESSION: No MR evidence of iron deposition in the liver or pancreas. No acute process in the abdomen to explain pain. Dictated by: Neetu Jarquin M.D. on 05/18/2023 at 13:46 Approved by: Neetu Jarquin M.D. on 05/18/2023 at 13:52
== END ==
PROVIDERS: Family Provider Nurse Practitioner Family; PCP Registered Nurse Diabetes Educator; Referring Provider Nurse Practitioner Family; Visit Provider Nurse Practitioner Family
DX: E83.19 Other disorders of iron metabolism (principal); R10.9 Unspecified abdominal pain
CPT/HCPCS: 74183; A9579

== ENCOUNTER → 2023-06-13 07:44 | Outpatient (CLI) | payer MEDICARE, SELFPAY ==
[2020-08-17 10:54] VITALS: BMI 22.1
[2023-06-13 09:04] LABS: Hematocrit 42.5 % (36-46); Hemoglobin 14.8 g/dL (12.0-16.0); Mean Corpuscular HGB Conc 34.7 % (30-36); Mean Corpuscular Hemoglobin 36.4 PG (26-34); Mean Corpuscular Volume 104.9 fL (80-100); Platelet Count 233 X10^3/uL (150-400); Red Blood Cell Count 4.06 X10^6/uL (4.0-5.2); Red Cell Distribution Width 13.9 % (11.6-14.8); White Blood Cell Count 5.8 X10^3/uL (4.5-11.0)
[2023-06-13 09:16] LABS: HEMOLYSIS < 15 (0-50)
[2023-06-13 09:21] LABS: Alanine Aminotransferase 20 IU/L (<35); Albumin 4.5 g/dL (3.5-5.0); Albumin Globulin Ratio 1.7 (1.0-2.8); Alkaline Phosphatase 113 U/L (38-126); Aspartate Aminotransferase 40 IU/L (14-36); BUN Creatinine Ratio 27.4 (6-22); Bilirubin Total 1.7 mg/dL (0.2-1.3); Blood Urea Nitrogen 17 mg/dL (7-17); Calcium 9.3 mg/dL (8.4-10.2); Carbon Dioxide 29 mmol/L (22-32); Chloride 105 mmol/L (98-107); Estimated Glomerular Filt Rate > 60 mL/min (>60); Globulin 2.6 g/dL (1.7-4.1); Glucose 105 mg/dL (80-110); Potassium 3.6 mmol/L (3.4-5.1); Sodium 140 mmol/L (137-145); Total Protein 7.1 g/dL (6.3-8.2)
[2023-06-13 10:21] LABS: Ferritin 76 ng/mL (11-264)
== END ==
PROVIDERS: Family Provider Nurse Practitioner Family; PCP Registered Nurse Diabetes Educator; Referring Provider Nurse Practitioner Family; Visit Provider Nurse Practitioner Family
DX: E83.19 Other disorders of iron metabolism (principal); R10.9 Unspecified abdominal pain; R79.89 Other specified abnormal findings of blood chemistry; E78.5 Hyperlipidemia, unspecified; R73.01 Impaired fasting glucose; I10 Essential (primary) hypertension; R71.8 Other abnormality of red blood cells
CPT/HCPCS: 36415; 80053; 81256; 82728; 85027

== ENCOUNTER → 2023-06-27 12:05 | Outpatient (CLI) | payer MEDICARE, SELFPAY ==
[2020-08-17 10:54] VITALS: BMI 22.1
--- NOTE | 2023-06-27 12:07 | DI.RAD.S_ITS ---
PROCEDURE: XR TOE RT MIN 2V INDICATIONS: Great toe redness/pain/swelling since this morning 6:30am TECHNIQUE: 3 views of the 1st toe(s) acquired. COMPARISON: None. FINDINGS: Bones: No fractures or dislocations. No suspicious bony lesions. Metatarsus adductus and hallux valgus. Moderate to severe 1st metatarsophalangeal joint degeneration with prominent osteophyte. Soft tissues: No suspicious soft tissue densities. Soft tissue swelling over the base of the 1st toe. IMPRESSION: 1. No acute bony abnormality. 2. Metatarsus adductus and hallux valgus. 3. Moderate to severe degenerative joint disease at the 1st metatarsophalangeal joint. Dictated by: Lisa William M.D. on 06/27/2023 at 13:58 Approved by: Lisa William M.D. on 06/27/2023 at 14:00
[2023-06-27 12:55] LABS: Add Manual Diff / Slide Review NO; Basophils Absolute Auto 0 /uL (0-100); Basophils Percent Auto 0.6 % (0-2); Eosinophils Absolute Auto 100 /uL (0-450); Eosinophils Percent Auto 1.2 % (2-4); Hematocrit 40.7 % (36-46); Hemoglobin 14.1 g/dL (12.0-16.0); Lymphocytes Absolute Auto 1700 /uL (1100-4500); Lymphocytes Percent Auto 28.8 % (25-40); Mean Corpuscular HGB Conc 34.6 % (30-36); Mean Corpuscular Hemoglobin 36.9 PG (26-34); Mean Corpuscular Volume 106.6 fL (80-100); Monocytes Absolute Auto 200 /uL (0-900); Monocytes Percent Auto 3.8 % (3-14); Neutrophils Absolute Auto 3900 /uL (1500-7000); Neutrophils Percent Auto 65.6 % (50-75); Platelet Count 204 X10^3/uL (150-400); Red Blood Cell Count 3.82 X10^6/uL (4.0-5.2); Red Cell Distribution Width 14.3 % (11.6-14.8); White Blood Cell Count 5.9 X10^3/uL (4.5-11.0)
[2023-06-27 13:14] LABS: Erythrocyte Sedimentation Rate 8 MM/HR (0-20)
[2023-06-27 13:33] LABS: Uric Acid 5.1 mg/dL (2.5-6.2)
== END ==
LOC: LAB 12:07
PROVIDERS: Family Provider Nurse Practitioner Family; PCP Registered Nurse Diabetes Educator; Referring Provider Physician Assistant; Visit Provider Physician Assistant
DX: M79.676 Pain in unspecified toe(s) (principal)
CPT/HCPCS: 36415; 73660; 84550; 85025; 85651

== ENCOUNTER → 2023-07-24 10:14 | Outpatient (CLI) | payer MEDICARE, SELFPAY ==
[2020-08-17 10:54] VITALS: BMI 22.1
[2023-07-24 11:02] LABS: Add Manual Diff / Slide Review NO; Basophils Absolute Auto 0 /uL (0-100); Basophils Percent Auto 0.7 % (0-2); Eosinophils Absolute Auto 100 /uL (0-450); Eosinophils Percent Auto 1.8 % (2-4); Hematocrit 42.5 % (36-46); Hemoglobin 14.6 g/dL (12.0-16.0); Lymphocytes Absolute Auto 1600 /uL (1100-4500); Lymphocytes Percent Auto 29.4 % (25-40); Mean Corpuscular HGB Conc 34.5 % (30-36); Mean Corpuscular Hemoglobin 37.1 PG (26-34); Mean Corpuscular Volume 107.8 fL (80-100); Monocytes Absolute Auto 200 /uL (0-900); Monocytes Percent Auto 4.4 % (3-14); Neutrophils Absolute Auto 3500 /uL (1500-7000); Neutrophils Percent Auto 63.7 % (50-75); Platelet Count 180 X10^3/uL (150-400); Red Blood Cell Count 3.94 X10^6/uL (4.0-5.2); Red Cell Distribution Width 14.1 % (11.6-14.8); White Blood Cell Count 5.4 X10^3/uL (4.5-11.0)
[2023-07-24 11:26] LABS: Reticulocyte Count, Percent 0.6 % (1.1-2.6)
[2023-07-24 11:31] LABS: Alanine Aminotransferase 19 IU/L (<35); Albumin 4.6 g/dL (3.5-5.0); Albumin Globulin Ratio 1.8 (1.0-2.8); Alkaline Phosphatase 93 U/L (38-126); Aspartate Aminotransferase 40 IU/L (14-36); BUN Creatinine Ratio 27.4 (6-22); Blood Urea Nitrogen 20 mg/dL (7-17); Calcium 9.4 mg/dL (8.4-10.2); Carbon Dioxide 26 mmol/L (22-32); Chloride 106 mmol/L (98-107); Estimated Glomerular Filt Rate > 60 mL/min (>60); Globulin 2.5 g/dL (1.7-4.1); Glucose 168 mg/dL (80-110); HEMOLYSIS < 15 (0-50); Iron 218 ug/dL (37-170); Potassium 3.8 mmol/L (3.4-5.1); Sodium 138 mmol/L (137-145); Total Protein 7.1 g/dL (6.3-8.2)
[2023-07-24 11:42] LABS: Total Iron Binding Capacity 303 ug/dL (265-497); Transferrin 250 mg/dL (206-381)
[2023-07-24 11:44] LABS: Percent Iron Saturation 72 % (15-50)
[2023-07-24 12:02] LABS: Ferritin 131 ng/mL (11-264)
[2023-07-24 12:33] LABS: Folate 6.7 ng/mL (2.76-20.0); Vitamin B12 > 1000 pg/mL (239-931)
== END ==
PROVIDERS: Family Provider Nurse Practitioner Family; PCP Registered Nurse Diabetes Educator; Referring Provider Registered Nurse Diabetes Educator; Visit Provider Registered Nurse Diabetes Educator
DX: E83.19 Other disorders of iron metabolism (principal); D75.89 Other specified diseases of blood and blood-forming organs
CPT/HCPCS: 36415; 80053; 82607; 82728; 82746; 83540; 83550; 85025; 85045

== ENCOUNTER → 2023-07-25 10:42 | Outpatient (CLI) | payer MEDICARE, SELFPAY ==
[2020-08-17 10:54] VITALS: BMI 22.1
--- NOTE | 2023-07-25 | DI.MG.S_ITS ---
BILATERAL DIGITAL SCREENING MAMMOGRAM 3D/2D WITH CAD: 07/25/2023 CLINICAL: Routine screening. Comparison is made to exams dated: 12/07/2019 mammogram, 06/10/2017 mammogram, and 04/12/2007 mammogram - . Both breasts are heterogeneously dense, which may obscure small masses (category c / 51-75% glandular tissue). Current study was also evaluated with a Computer Aided Detection (CAD) system. There are benign calcifications in both breasts. There also are benign post operative findings in the left breast. No significant masses, calcifications, or other findings are seen in either breast. There has been no significant interval change. IMPRESSION: BENIGN There is no mammographic evidence of malignancy. A 1 year screening mammogram is recommended. Based on the Tyrer Cuzick model (a risk assessment model) the patient's lifetime risk is 5.9% and her 10 year risk is 3.4%. According to the ACR, ACS, and NCCN guidelines, an annual breast MRI exam along with mammogram is recommended if the patient's lifetime risk is 20% or greater. This exam was interpreted at Station ID: [id number]. NOTE: For mammograms, a report in lay terms will be sent to the patient. Approximately 15% of breast malignancies will not be visualized mammographically. In the management of a palpable breast mass, a negative mammogram must not discourage biopsy of a clinically suspicious lesion. Electronically Signed By: Marvin dukes/joon:07/26/2023 10:40:51 letter sent: Normal Exam ACR BI-RADS Category 2: Benign Finding(s) 3342F
--- NOTE | 2023-07-25 10:43 | DI.RAD.S_ITS ---
PROCEDURE: XR DEXA AXIAL SKELETON INDICATIONS: elevated risk for osteoporosis COMPARISON: None. FINDINGS: Lumbar Spine: Bone mineral density 0.88 a g/cm2, T score -1.4, osteopenia. Right Hip: Bone mineral density 0.618 g/cm2, T score -2.7, osteoporosis. Right Femoral Neck: Bone mineral density 0.540 g/cm2, T score -2.8, osteoporosis. Left Forearm: Bone mineral density 2.629 g/cm2, T score -1.1, osteopenia. Fracture Risk Calculation (when applicable): 10-year fracture risk of a major osteoporotic fracture 33% and of a hip fracture 16%. (T score greater or equal to -1.0 to: NORMAL) (T score from -1.1 to -2.4: OSTEOPENIA) (T score less than or equal to -2.5: OSTEOPOROSIS) IMPRESSION: Based on WHO criteria, the patient has osteoporosis and increased risk for osteoporotic fractures Follow-up guidelines as follows: Osteoporosis: Consider a repeat DEXA and Vertebral Fracture Assessment (VFA) exam in 2 years or sooner if medically necessary, to reassess this patient's status. Osteopenia: Consider a repeat DEXA in 2-3 years to reassess this patient's status, or if there is a new clinical indication. Normal: Consider a repeat DEXA in 5 years or sooner, or if there is a new clinical indication. All treatment decisions require clinical judgment and consideration of individual patient factors, including patient preferences, comorbidities, previous drug use, risk factors not captured in the FRAX model (e.g., frailty, falls, vitamin D deficiency, increased bone turnover, interval significant decline in bone density ) and possible under- or over-estimation of fracture risk by FRAX. In addition, the NOF Guide recommends that FDA-approved medical therapies be considered in postmenopausal women and men age >= 50 years with a: * Hip or vertebral (clinical or morphometric) fracture * T-score of <=-2.5 at the spine or hip * Ten-year fracture probability by FRAX of >= 3% for hip fracture or >=20% for major osteoporotic fracture. People with diagnosed cases of osteoporosis or at high risk for fracture should have regular bone mineral density tests. For patients eligible for Medicare, routine testing is allowed once every 2 years. The testing frequency can be increased to one year for patients who have rapidly progressing disease, those who are receiving or discontinuing medical therapy to restore bone mass, or have additional risk factors. Dictated by: Lisa William M.D. on 07/25/2023 at 13:02 Approved by: Lisa William M.D. on 07/25/2023 at 13:04
== END ==
PROVIDERS: Family Provider Nurse Practitioner Family; PCP Registered Nurse Diabetes Educator; Referring Provider Registered Nurse Diabetes Educator; Visit Provider Registered Nurse Diabetes Educator
DX: Z78.0 Asymptomatic menopausal state (principal); Z12.31 Encounter for screening mammogram for malignant neoplasm of breast; R92.333 Mammographic heterogeneous density, bilateral breasts; M81.0 Age-related osteoporosis without current pathological fracture
CPT/HCPCS: 77063; 77067; 77080; 77081

== ENCOUNTER → 2023-09-29 09:05 | Outpatient (CLI) | payer MEDICARE, SELFPAY ==
[2020-08-17 10:54] VITALS: BMI 22.1
--- NOTE | 2023-09-29 09:06 | DI.CT.S_ITS ---
PROCEDURE: CT LUNG LOW DOSE SCREENING INDICATIONS: high risk lung cancer screen TECHNIQUE: Noncontrast 2.0-2.5 mm thick sections acquired from the pulmonary apices to the posterior costophrenic angles. 7 mm thick axial MIP, and 5 mm coronal and sagittal reformats were then acquired. For radiation dose reduction, the following was used: automated exposure control, adjustment of mA and/or kV according to patient size. COMPARISON: None. FINDINGS: Image quality: Diagnostic. Lower Neck: No enlarged lymph nodes. Thyroid: No thyroid nodules which require sonographic follow up, per consensus guidelines. Axillae: No enlarged lymph nodes. Chest Wall: Unremarkable. Bones: Unremarkable. Lungs and Pleura: No pneumothorax or pleural effusions. No consolidation or suspicious nodules. Note is made of a small region of absence of the posterior left hemidiaphragm allowing a small amount of left upper quadrant retroperitoneal fat to extend mildly cephalad into the left lower pleural space. Heart: Heart size is normal. No pericardial effusion. Thoracic Vessels: The aorta and pulmonary arteries demonstrate normal size. Mediastinum and Shani: No enlarged lymph nodes. Esophagus: No wall thickening. No hiatal hernia. Upper Abdomen: Visualized upper abdomen solid organs and bowel loops appear normal. IMPRESSION: No suspicious pulmonary nodules. 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 No follow-up necessary. LUNG-RADS category 1; continued annual screening, if eligible. 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 Dictated by: Weston Mora M.D. on 09/29/2023 at 12:27 Approved by: Weston Mora M.D. on 09/29/2023 at 12:31
== END ==
PROVIDERS: Family Provider Nurse Practitioner Family; PCP Registered Nurse Diabetes Educator; Referring Provider Registered Nurse Diabetes Educator; Visit Provider Registered Nurse Diabetes Educator
DX: F17.200 Nicotine dependence, unspecified, uncomplicated (principal); Z12.2 Encounter for screening for malignant neoplasm of respiratory organs
CPT/HCPCS: 71271

== ENCOUNTER → 2023-11-18 12:38 | Outpatient (CLI) | payer MEDICARE, SELFPAY ==
[2020-08-17 10:54] VITALS: BMI 22.1
[2023-11-18 14:10] LABS: Influenza A - CEPHEID Flu A NEGATIVE (NEGATIVE); Influenza B - CEPHEID Flu B NEGATIVE (NEGATIVE); Respiratory Syncytial Virus Negative (Negative)
[2023-11-18 14:13] LABS: COVID-19 CEPHEID 4-PLEX PCR Negative (Negative)
== END ==
PROVIDERS: Family Provider Nurse Practitioner Family; PCP Registered Nurse Diabetes Educator; Visit Provider Physician Assistant Surgical
DX: R05.1 Acute cough (principal)
CPT/HCPCS: 0241U

== ENCOUNTER → 2023-11-20 13:23 | Outpatient (CLI) | payer MEDICARE, SELFPAY ==
[2020-08-17 10:54] VITALS: BMI 22.1
--- NOTE | 2023-11-20 13:25 | DI.RAD.S_ITS ---
PROCEDURE: XR CHEST 2V INDICATIONS: SOB, cough TECHNIQUE: 2 views of the chest were acquired. COMPARISON: [facility], CR, XR CHEST 1V, 04/10/2019, 18:18. FINDINGS: [id number]-[id number] bilateral perihilar and diffuse peribronchial thickening more than expected for mild subsegmental atelectasis and expiratory result and bronchitis, viral infection, asthma or other process should be considered. Mild calcifications of the aortic arch Mild to moderate degenerate changes of the thoracic spine. Cardiopericardial silhouette, pulmonary vasculature within normal limits. No pneumothorax, no pleural effusion, no lobar consolidation. IMPRESSION: [id number] bilateral peribronchial thickening as discussed above, bronchitis, viral infection, asthma or other process should be considered. Follow-up suggested. If symptoms persist or worsen, CT chest could be performed Dictated by: Cristiano Mckeon M.D. on 11/20/2023 at 13:56 Approved by: Cristiano Mckeon M.D. on 11/20/2023 at 13:59
== END ==
LOC: RAD 13:25
PROVIDERS: Family Provider Nurse Practitioner Family; PCP Registered Nurse Diabetes Educator; Referring Provider Physician Assistant Surgical; Visit Provider Physician Assistant Surgical
DX: R05.9 Cough, unspecified (principal); R06.02 Shortness of breath
CPT/HCPCS: 71046

== ENCOUNTER → 2023-12-09 11:13 | Outpatient (CLI) | payer MEDICARE, SELFPAY ==
[2020-08-17 10:54] VITALS: BMI 22.1
[2023-12-09 13:04] LABS: BUN Creatinine Ratio 14.5 (6-22); Blood Urea Nitrogen 12 mg/dL (7-17); Calcium 9.5 mg/dL (8.4-10.2); Carbon Dioxide 29 mmol/L (22-32); Chloride 105 mmol/L (98-107); Estimated Glomerular Filt Rate > 60 mL/min (>60); Glucose 105 mg/dL (80-110); HEMOLYSIS < 15 (0-50); Potassium 4.5 mmol/L (3.4-5.1); Sodium 138 mmol/L (137-145)
[2023-12-09 14:05] LABS: Vitamin D 25 Hydroxy (D3) 30.9 ng/mL (30.0-100.0)
== END ==
PROVIDERS: Family Provider Nurse Practitioner Family; PCP Registered Nurse Diabetes Educator; Referring Provider Registered Nurse Diabetes Educator; Visit Provider Registered Nurse Diabetes Educator
DX: I10 Essential (primary) hypertension (principal); M81.0 Age-related osteoporosis without current pathological fracture
CPT/HCPCS: 36415; 80048; 82306

== ENCOUNTER → 2024-06-04 09:05 | Outpatient (CLI) | payer MEDICARE, SELFPAY ==
[2020-08-17 10:54] VITALS: BMI 22.1
[2024-06-04 09:29] LABS: Add Manual Diff / Slide Review NO; Basophils Absolute Auto 100 /uL (0-100); Eosinophils Absolute Auto 100 /uL (0-450); Eosinophils Percent Auto 2.5 % (2-4); Hematocrit 40.5 % (36-46); Hemoglobin 13.9 g/dL (12.0-16.0); Lymphocytes Absolute Auto 1700 /uL (1100-4500); Lymphocytes Percent Auto 32.7 % (25-40); Mean Corpuscular HGB Conc 34.3 % (30-36); Mean Corpuscular Hemoglobin 38.2 PG (26-34); Mean Corpuscular Volume 111.4 fL (80-100); Monocytes Absolute Auto 200 /uL (0-900); Monocytes Percent Auto 3.5 % (3-14); Neutrophils Absolute Auto 3100 /uL (1500-7000); Neutrophils Percent Auto 60.3 % (50-75); Platelet Count 210 X10^3/uL (150-400); Red Blood Cell Count 3.63 X10^6/uL (4.0-5.2); Red Cell Distribution Width 14.4 % (11.6-14.8); White Blood Cell Count 5.2 X10^3/uL (4.5-11.0)
[2024-06-04 09:42] LABS: Anisocytosis 1+
[2024-06-04 09:45] LABS: Hemoglobin A1C% w Est Avg Glu 4.7 % (4.0-6.0)
[2024-06-04 10:04] LABS: Alanine Aminotransferase 22 IU/L (<35); Albumin 4.3 g/dL (3.5-5.0); Albumin Globulin Ratio 1.8 (1.0-2.8); Alkaline Phosphatase 96 U/L (38-126); Aspartate Aminotransferase 42 IU/L (14-36); BUN Creatinine Ratio 20.5 (6-22); Bilirubin Total 1.1 mg/dL (0.2-1.3); Blood Urea Nitrogen 15 mg/dL (7-17); Calcium 9.2 mg/dL (8.4-10.2); Carbon Dioxide 30 mmol/L (22-32); Chloride 104 mmol/L (98-107); Cholesterol 183 mg/dL (140-199); Estimated Glomerular Filt Rate > 60 mL/min (>60); Globulin 2.4 g/dL (1.7-4.1); Glucose 97 mg/dL (80-110); HDL Cholesterol 98 mg/dL (40-60); HEMOLYSIS < 15 (0-50); LDL Cholesterol Calculated 63 mg/dL (<100); Potassium 4.1 mmol/L (3.4-5.1); Sodium 139 mmol/L (137-145); Total Protein 6.7 g/dL (6.3-8.2); Triglycerides 112 mg/dL (35-150)
== END ==
PROVIDERS: Family Provider Nurse Practitioner Family; PCP Registered Nurse Diabetes Educator; Referring Provider Registered Nurse Diabetes Educator; Visit Provider Registered Nurse Diabetes Educator
DX: E83.110 Hereditary hemochromatosis (principal); I10 Essential (primary) hypertension; E78.5 Hyperlipidemia, unspecified; R73.01 Impaired fasting glucose
CPT/HCPCS: 36415; 80053; 80061; 83036; 85025

== ENCOUNTER → 2025-01-06 10:56 | Outpatient (CLI) | payer MEDICARE, SELFPAY ==
[2020-08-17 10:54] VITALS: BMI 22.1
[2025-01-06 12:21] LABS: Appearance Urine UA CLEAR; Bilirubin Urine UA NEGATIVE (NEGATIVE); Color Urine UA YELLOW; Glucose Urine UA NEGATIVE (Negative); Ketones Urine UA NEGATIVE (NEGATIVE); Leukocyte Esterase Urine UA NEGATIVE (NEGATIVE); Nitrite Urine UA NEGATIVE (Negative); Occult Blood Urine UA 1+ (Negative); Protein Urine UA TRACE (Negative); Specific Gravity Urine UA 1.015 (1.000-1.035); Urobilinogen Urine UA 0.2 E.U./dL (0.2)
[2025-01-06 12:24] LABS: pH Urine UA 6.5 (4.5-8.0)
[2025-01-06 12:31] LABS: Culture Indicated Urine Cult Not Indicated
[2025-01-06 12:34] LABS: Add Manual Diff / Slide Review NO; Hematocrit 41.3 % (36-46); Hemoglobin 14.3 g/dL (12.0-16.0); Lymphocytes Absolute Auto 1100 /uL (1100-4500); Mean Corpuscular HGB Conc 34.7 % (30-36); Mean Corpuscular Hemoglobin 39.0 PG (26-34); Mean Corpuscular Volume 112.4 fL (80-100); Platelet Count 245 X10^3/uL (150-400)
[2025-01-06 13:07] LABS: Hemoglobin A1C% w Est Avg Glu 5.1 % (4.0-6.0)
[2025-01-06 13:11] LABS: Macrocytosis 1+
[2025-01-06 14:31] LABS: Alanine Aminotransferase 17 IU/L (<35); Albumin 4.0 g/dL (3.5-5.0); Albumin Globulin Ratio 1.5 (1.0-2.8); Alkaline Phosphatase 120 U/L (38-126); Blood Urea Nitrogen 17 mg/dL (7-17); Calcium 8.9 mg/dL (8.4-10.2); Carbon Dioxide 27 mmol/L (22-32); Chloride 104 mmol/L (98-107); Estimated Glomerular Filt Rate > 60 mL/min (>60); Globulin 2.6 g/dL (1.7-4.1); Glucose 102 mg/dL (70-99); HEMOLYSIS < 15 (0-50); Potassium 3.8 mmol/L (3.4-5.1); Sodium 139 mmol/L (137-145); Total Protein 6.6 g/dL (6.3-8.2)
[2025-01-06 17:27] LABS: Thyroid Stimulating Hormone 1.03 uIU/mL (0.47-4.68)
[2025-01-06 19:35] LABS: Free T4, Direct Thyroxine 0.88 ng/dL (0.78-2.19)
[2025-01-07 15:51] LABS: HIV 1 & 2 Ab/Ag 4th Gen Combo NEGATIVE (NEGATIVE); Hep C Virus Ab w/Reflex Quant NEGATIVE s/c (NEGATIVE)
== END ==
PROVIDERS: PCP Registered Nurse Diabetes Educator; Referring Provider Registered Nurse Diabetes Educator; Visit Provider Registered Nurse Diabetes Educator
DX: I10 Essential (primary) hypertension (principal); R73.01 Impaired fasting glucose; D75.89 Other specified diseases of blood and blood-forming organs; F32.9 Major depressive disorder, single episode, unspecified; E78.5 Hyperlipidemia, unspecified; R63.4 Abnormal weight loss; F17.200 Nicotine dependence, unspecified, uncomplicated
CPT/HCPCS: 36415; 80053; 81001; 83036; 84439; 84443; 85025; 85651; 86140; 86803; 87389

== ENCOUNTER → 2025-01-10 11:42 | Outpatient (CLI) | payer MEDICARE, SELFPAY ==
[2020-08-17 10:54] VITALS: BMI 22.1
--- NOTE | 2025-01-10 11:44 | DI.RAD.S_ITS ---
PROCEDURE: XR CHEST 2V INDICATIONS: eval weight loss TECHNIQUE: 2 views of the chest were acquired. COMPARISON: [facility], CR, XR CHEST 2V, 11/20/2023, 13:24. [facility], CR, XR CHEST 1V, 04/10/2019, 18:18. FINDINGS: Surgical changes and devices: None. Lungs and pleura: Lungs are clear. No pleural effusions or pneumothorax. Mediastinum: Mediastinal contours are normal. Heart size is normal. Bones and chest wall: No suspicious bony abnormalities. Soft tissues appear unremarkable. IMPRESSION: No acute cardiopulmonary abnormality is seen. Dictated by: Jesus Tompkins M.D. on 01/11/2025 at 13:18 Approved by: Jesus Tompkins M.D. on 01/11/2025 at 13:19
== END ==
PROVIDERS: PCP Registered Nurse Diabetes Educator; Referring Provider Registered Nurse Diabetes Educator; Visit Provider Registered Nurse Diabetes Educator
DX: F17.200 Nicotine dependence, unspecified, uncomplicated (principal); R63.4 Abnormal weight loss
CPT/HCPCS: 71046